=== PATIENT | female | born 2000 | race Caucasian/White ===

== ENCOUNTER 2020-03-09 20:49 | Emergency (ER) | payer OTHER, SELFPAY ==
--- NOTE | 2020-03-09 20:52 | ED.DENTAL ---
HPI - Dental/Oral General Chief complaint: Dental/Oral Stated complaint: tooth problems Time Seen by Provider: 03/09/20 20:52 Source: patient and RN notes reviewed Mode of arrival: ambulatory Limitations: no limitations History of Present Illness HPI Narrative: patient states that she had a filling fall out on left lower tooth. She denies any fever chills. MD Complaint: tooth pain Teeth map: 1. Dental pain Onset (ago): day(s) (3) Duration: intermittent Severity: moderate Relieving factors: other ( Tylenol) Exacerbating factors: chewing Context: history of dental caries Treatment prior to arrival: none Related Data Allergies Allergy/AdvReac Type Severity Reaction Status Date / Time No Known Allergies Allergy Unverified 05/27/18 18:57 Review of Systems Review of Systems: Narrative: Patient appears obviously . When asked she denied it and said she had a period 2 weeks ago. Constitutional: Constitutional: Reports no additional constitutional complaints, Denies chills and Denies fever(s) Eyes: Eyes: Reports no additional eye complaints ENT: Reports system reviewed and no additional complaints, except as documented Cardiovascular: Cardiovascular: Reports no additional cardiovascular complaints Respiratory: Respiratory: Reports no additional respiratory complaints Gastrointestinal: Gastrointestinal: Reports no additional gastrointestinal complaints Musculoskeletal: Comments: patient complains of left medial elbow pain. She said she hit it on a pot at work. Integumentary/Breasts: Skin/Breast: Reports system reviewed and no additional complaints, except as docu Neurologic: Reports system reviewed and no additional complaints, except as documented Psychiatric: Psychiatric: Reports no additional psychiatric complaints PMFSH Past Medical History Medical History (Updated 03/09/20 @ 21:29 by Bradley Valladares MD) Anxiety Social History Social History (Updated 03/09/20 @ 21:30 by Bradley Valladares MD) Smoking packs per day: 1 Smoking cigarettes per day: 20.0 Smoking status: Current every day smoker Tobacco type: cigarettes Alcohol intake: current Alcohol use details: Occasional Substance use: never Exam Const: General: healthy appearing, no acute distress and alert Nutritional Appearance: well nourished Orientation/consciousness: patient oriented x3 Other: Female nurse in room during examination. HENMT: Head: normal to inspection Ears: external ears normal and TM abnormal General nose exam: Normal external nose present Mouth: Yes lip normal Teeth and gingiva: abnormal tooth and associated gingiva lower left first molar tender and with associated gingival edema Teeth image: 1. Tenderness with mild edema Eyes: Conjunctivae: conjunctivae normal Pupils: Equal, round and reactive pupils present EOM: EOMs intact bilaterally Neck: Neck: normal visual inspection and no lymphadenopathy Resp: Effort & Inspection: normal respiratory effort Auscultation: clear to auscultation bilaterally Cardio: Rate: regular rate Rhythm: regular rhythm GI: Inspection: other Auscultation: normal bowel sounds Other: During my abdominal exam I palpated the uterus to be near the xiphoid process. When measured the uterus is 34 cm from symphysis pubis to fundus. heart tones at 140. Back/Spine/Pelvis: Cervical Spine: cervical ROM normal Thoracic/Lumbar Spine: thoraco-lumbar ROM normal Skin: General skin exam: normal color Rashes: no rashes Neuro: General: patient oriented x3, moves all extremities and no focal motor deficits Speech: normal speech Gait exam (Neuro): Normal gait present Extrem: General: normal to inspection and no pedal edema Left upper extremity: elbow/forearm tenderness of the medial epicondyle (Mild) but not with resisted supination and but not with resisted pronation and normal ROM Psych: Appearance: grossly normal and well kempt Mental Status: menta
[2020-03-09 21:00] VITALS: BP 115/62; PULSE 110; RESP 18; TEMP 36.6; O2SAT 98
--- NOTE | 2020-03-09 21:15 | PC.NURSE ---
pt continues to deny , edp at bedside assessing pt. heart tones heard left side near umbilicus. pt fundus measured per edp, pt approx 34 weeks . Pt flat, showing no emmotion. Pt asking for something for her anxiety.
--- NOTE | 2020-03-09 21:30 | PC.NURSE ---
Upon discharged pt requesting medication for anxiety. Pt educated that we are unable to safely prescribe any anti-anxiety medications due to her and that she needed to see an obgyn. list of obgyns given to patient. Pt educated on closest hospitals with ob departments. Pt verbalizes understanding and then again states when she was with her son the she was given peaches and berries , pt clarified this when asked to mean clonazepam and lorazepam. Pt continues to request medications, pt advised that she will have to get her prescriptions filled and follow up. Again educated patient that she needs to see an obgyn. Pt continues to have flat affect and poor eye contact.
--- NOTE | 2020-03-09 22:32 | PC.NURSE ---
Upon cleaning the room after pts discharge. Pt discharge packet and prescriptions where found in the trash can in the room.
== END 2020-03-09 21:40 | disposition home or self-care (01) ==
PROVIDERS: Emergency Provider Emergency Medicine; PCP Physician Assistant
DX: K08.89 Other specified disorders of teeth and supporting structures (principal)
CPT/HCPCS: 99283

== ENCOUNTER 2020-03-11 17:35 | Emergency (ER) | payer OTHER, SELFPAY ==
[2020-03-11 17:43] VITALS: BP 147/79; PULSE 113; RESP 17; TEMP 36.8; O2SAT 97
--- NOTE | 2020-03-11 17:47 | ED.DENTAL ---
HPI - Dental/Oral General Chief complaint: Dental/Oral Stated complaint: tooth pain Source: patient Mode of arrival: ambulatory Limitations: no limitations History of Present Illness HPI Narrative: This is a 19-year-old female with chronic dental pain is apparently 8 months presents with dental pain, the patient eloped in the middle of me talking to her and in allow for a full assessment. The patient patient was here this past Sunday evening and was given an antibiotic and another ER doctor prescribed narcotic but the narcotic would only be filled if she filled her antibiotic along with the the pain medicine. According to the nurses note from this past Tuesdays ER visit the patient threw away her amoxicillin script and according to nurse's note to the Scripts found in the trash bin. other nurse today I did a call back and the patient was not able to burr picker her narcotic strip secondary to she could only pick it up if she used the amoxicillin script and the pharmacy would not fill the prescription. Patient presents again with similar symptoms and I advised the patient that we can give her a local injection and treat her with other means other than narcotic, the patient declined, stating that the local an anesthetic would only give her temporary relief, and she flat refused taking any antibiotics that were offered. Explained that some we do not tend to write for narcotics for dental pain along with some with a 8 month and she stated in Why with the other doctor give me a narcotic then and . The patient then walked out of the room stating that she a Phyllis stare and even though I offered her a local injection, other means of pain control along with an antibiotic. Onset (ago): month(s) Duration: intermittent Severity scale (1-10): 10 Relieving factors: nothing Related Data Allergies Allergy/AdvReac Type Severity Reaction Status Date / Time No Known Allergies Allergy Unverified 05/27/18 18:57 Review of Systems Review of Systems: All systems reviewed & are unremarkable except as noted in HPI and below PMFSH Past Medical History Medical History Anxiety Social History Social History Smoking packs per day: 1 Smoking cigarettes per day: 20.0 Smoking status: Current every day smoker Tobacco type: cigarettes Alcohol intake: current Substance use: never Exam Const: General: no acute distress and alert Orientation/consciousness: patient oriented x3 Other: Unable to complete any assessment are exam because after the patient was informed that she would not receive a narcotic scripts she walked out before any evaluation was performed. HENMT: Head: normal to inspection Course Course Emergency Course: There was no complete assessment of patient secondary to the patient was told that she would not be getting a narcotic script, because she did not feel that antibiotics would do any good, she refused a local pain injection, and she for refused any other type of pain medication other than wanting a narcotic for pain relief. Critical Care Time Critical Care Time Critical Care Time: No Discharge Plan Discharge Clinical Impression: Toothache Patient Disposition: Elruthann Ater Seen by Prov Condition: Stable Prescriptions: No Action acetaminophen-codeine [Tylenol-Codeine #3] 300-30 mg tablet 1 tablet PO Q6H PRN (Reason: pain) Qty: 10 RF: 0 amoxicillin 500 mg capsule 500 mg PO Q8H Qty: 30 RF: 0 Follow-up/Referrals: Angelique,RACHELE Aguila [Primary Care Provider] - Stand Alone Forms: Work/School Release IP Time of Disposition: 17:54
== END 2020-03-11 17:55 ==
PROVIDERS: Emergency Provider Emergency Medicine; PCP Physician Assistant
DX: K08.89 Other specified disorders of teeth and supporting structures (principal)
CPT/HCPCS: 99281; 99282

== ENCOUNTER 2020-05-03 21:53 | Emergency (ER) | payer OTHER, SELFPAY ==
[2020-05-03 22:00] VITALS: BP 123/80; PULSE 78; RESP 16; TEMP 36.4; O2SAT 98
--- NOTE | 2020-05-03 23:07 | ED.DENTAL ---
HPI - Dental/Oral General Chief complaint: Dental/Oral Stated complaint: tooth pain Source: patient Mode of arrival: ambulatory Limitations: no limitations History of Present Illness HPI Narrative: 19 y.o. c/o inability to eat because of left lower molar pain so severe she can't chew, this is associated with swelling and left anterior neck discomfort. It started 3 days ago. The pain makes her blood pressure go up and brings on anxiety. She has a dental appt. on 05/23. She's asking for something for her pain and her anxiety. She denies fevers and chills. She was seen by Dr. Valladares on 03/09 with the same complaint and request. Dr. Guy [place], and found several prescriptions ( consisting of tramadol, clonazepam, [place], Tylenol No. 3, and lorazepam) over the last year from 12 different doctors at 4 different pharmacies. Patient has 5 different addresses. A script for Tylenol #3 and Amoxicillin were given with instructions to be filled together. The pt. threw the Amoxicillin script away, so wasn't able to fill the Tylenol #3. Dr. Lucia saw the pt on 03/11. She eloped when she was told she would not be given a script for narcotics; she refused the antiobiotics and eloped. Location: Tooth # (19) Teeth map: 1. Tooth with what appears to be an intact filling. Related Data Home Medications Medication Instructions Recorded Confirmed clonazepam 0.5 mg PO BID PRN 05/03/20 05/03/20 Allergies Allergy/AdvReac Type Severity Reaction Status Date / Time ibuprofen Allergy Intermediate Swelling Verified 05/03/20 22:16 Review of Systems Constitutional: Constitutional: Reports no additional constitutional complaints [facility] Past Medical History Medical History Anxiety Social History Social History Smoking packs per day: 1 Smoking cigarettes per day: 20.0 Smoking status: Current every day smoker Tobacco type: cigarettes Alcohol intake: current Substance use: never Exam Const: General: no acute distress Orientation/consciousness: patient oriented x3 Other: Anxious. Very concerned about her tooth not being touched because of pain. HENMT: Face and sinus: no sinus tenderness Mouth: Yes Normal oral and palatal mucosa present Teeth and gingiva: dentition normal and normal teeth and gingiva Other: No facial swelling, redness, or induration. She had tenderness elicited with firm compression over the mandible corresponding to tooth #19. Fully opens her mouth. Tooth #19 identified by pt. as the one which hurts. There is a filling which appears to be intact. There is no surrounding gingival swelling. I warned pt then llightly touched her tooth with my finger and she jumped. No oral lesions otherwise seen. Left EAC and TM with normal landmarks. Neck: Neck: no lymphadenopathy Course Course Emergency Course: I explained she may have an inflamed, irritated nerve in tooth #19, or possibly a minor infection not responding to Amoxicillin. I offered to provide an alternative antibiotic. As far as eating, I recommended she drink luke warm nutrition supplement shakes (e.g. Ensure). I also recommended f/u with PCP to address her anxiety. Shortly after I left the room the patient eloped. Vital Signs Vital signs: Vital Signs Temperature 36.4 C 05/03/20 22:00 Pulse Rate 78 05/03/20 22:00 Respiratory Rate 16 05/03/20 22:00 Blood Pressure 123/80 05/03/20 22:00 Pulse Oximetry 98 05/03/20 22:00 Temperature 36.4 C 05/03/20 22:00 Pulse Rate 78 05/03/20 22:00 Respiratory Rate 16 05/03/20 22:00 Blood Pressure 123/80 05/03/20 22:00 Pulse Oximetry 98 05/03/20 22:00 MDM - Dental/Oral MDM Narrative Medical decision making narrative: The patient's behavior may be a current untreated substance use disorder,difficulty getting and keeping appointment with PCP dentist, frustration w
== END 2020-05-03 23:00 | disposition left against medical advice (07) ==
LOC: CHSED 21:54
PROVIDERS: Emergency Provider Family Medicine; PCP Physician Assistant
DX: K08.89 Other specified disorders of teeth and supporting structures (principal); F17.200 Nicotine dependence, unspecified, uncomplicated
CPT/HCPCS: 99281; 99282

== ENCOUNTER 2020-06-21 22:08 | Emergency (ER) | payer OTHER, SELFPAY ==
[2020-06-21 22:16] VITALS: BP 122/74; PULSE 88; RESP 20; TEMP 37; O2SAT 98
--- NOTE | 2020-06-21 22:25 | ED.FEMALEGU ---
HPI - Female Genitourinary General Chief complaint: PER DIEM NURSE Stated complaint: vaginal bleeding Time Seen by Provider: 06/21/20 22:26 Source: patient and RN notes reviewed Mode of arrival: ambulatory Limitations: no limitations History of Present Illness HPI Narrative: Patient states that she gave on May 02. She then thinks that she had a normal menstrual cycle on May 10 just 8 days later. She said she had intercourse 2 weeks after her delivery. She had a positive test at home but then today had significant bleeding and clots. No products of conception that she could see. Some moderate cramping. She currently has no abdominal pain. MD elicited complaint: vaginal bleeding Onset (ago): hour(s) (6) Location of symptoms: suprapubic Severity: severe Female Urogenital Radiation: Non-Radiating Quality of pain: cramping Consistency: improved Vaginal discharge: none Vaginal bleeding: heavy, bright red and clots Exacerbating factors: none Relieving factors: none Associated symptoms: denies other symptoms Treatment prior to arrival: none Sexual activity: Yes Possible : at home test positive Related Data : 4 Para: 3 Home Medications Medication Instructions Recorded Confirmed gabapentin 300 mg PO TID 06/21/20 06/21/20 Allergies Allergy/AdvReac Type Severity Reaction Status Date / Time ibuprofen Allergy Intermediate Swelling Verified 06/21/20 22:23 Review of Systems Review of Systems: All systems reviewed & are unremarkable except as noted in HPI and below PMFSH Past Medical History Medical History Anxiety Social History Social History Smoking packs per day: 1 Smoking cigarettes per day: 20.0 Smoking status: Current every day smoker Tobacco type: cigarettes Alcohol intake: current Substance use: never Gender identity (if verbalized by the patient): Female Exam Const: General: healthy appearing and no acute distress Nutritional Appearance: well nourished and thin Orientation/consciousness: patient oriented x3 Other: Female nurse in room during examination. HENMT: Head: normal to inspection Ears: external ears normal Face and sinus: normal facial exam Eyes: Conjunctivae: conjunctivae normal Pupils: Equal, round and reactive pupils present EOM: EOMs intact bilaterally Neck: Neck: normal visual inspection Resp: Effort & Inspection: normal respiratory effort Auscultation: clear to auscultation bilaterally Cardio: Rate: regular rate Rhythm: regular rhythm GI: GI Palp: Yes Soft to palpation, No Tenderness to palpation present (GI), No Guarding due to palpation present (GI) and No Rebound tenderness present Auscultation: normal bowel sounds : General: Yes no CVA tenderness Back/Spine/Pelvis: Cervical Spine: cervical ROM normal Thoracic/Lumbar Spine: thoraco-lumbar ROM normal Skin: General skin exam: normal color Rashes: no rashes Neuro: General: patient oriented x3, moves all extremities, no meningeal signs and no focal motor deficits Speech: normal speech Gait exam (Neuro): Normal gait present Extrem: General: normal to inspection and no clubbing, cyanosis or edema Psych: Mental Status: mental status grossly normal Affect: normal affect Attitude: cooperative Thought content: Yes Normal thought content present Judgement: Good judgement present (Psych) Course Course Emergency Course: I canceled the quantitative beta HCG due to the qualitative being negative. I believe she is having her 1st normal menstrual cycle after her delivery. Vital Signs Vital signs: Vital Signs Temperature 37.0 C 06/21/20 22:16 Pulse Rate 88 06/21/20 22:16 Respiratory Rate 20 06/21/20 22:16 Blood Pressure 122/74 06/21/20 22:16 Pulse Oximetry 98 06/21/20 22:16 Temperature 37.0 C 06/21/20 22:16 Pulse Rate 80 06/21/20 23:32 Respiratory
[2020-06-21 23:05] LABS: Pregnancy On Board Control Positive; Urine Pregnancy Test Negative
--- NOTE | 2020-06-21 23:06 | PC.NURSE ---
[id number] RN present in room for doctor to examine pt
[2020-06-21 23:32] VITALS: PULSE 80; RESP 20; O2SAT 100
== END 2020-06-21 23:33 | disposition home or self-care (01) ==
PROVIDERS: Emergency Provider Emergency Medicine; PCP Physician Assistant
DX: N92.0 Excessive and frequent menstruation with regular cycle (principal)
CPT/HCPCS: 36415; 81025; 84702; 99282; 99283

== ENCOUNTER 2020-08-15 01:05 | Emergency (ER) | payer OTHER, SELFPAY ==
[2020-08-15 01:40] VITALS: BP 136/72; PULSE 91; RESP 20; TEMP 37.2; O2SAT 97
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
[2020-08-15] MEDS: ACETAMINOPHEN 500 MG TABLET 1000 MG PO (01:59)
[2020-08-15] MEDS: ALPRAZolam (*CRX) 0.5 MG TABLET PO (01:59)
[2020-08-15 02:00] VITALS: BP 123/78; PULSE 97; RESP 20; TEMP 37.1; O2SAT 99
--- NOTE | 2020-08-15 16:41 | PC.NURSE ---
Pt called to request medication be sent to a different pharmacy. Pt instructed that we are unable to re-send the prescription and to call her pmd in the am to discuss having prescription re-written if needed. Pt states she is unable to get this particular prescription filled at [facility] and can only have it filled at [facility] due to it being a controlled substance.
== END 2020-08-15 02:12 | disposition home or self-care (01) ==
PROVIDERS: Emergency Provider Emergency Medicine; PCP Physician Assistant
DX: F41.9 Anxiety disorder, unspecified (principal); F41.0 Panic disorder [episodic paroxysmal anxiety]; S00.03XA Contusion of scalp, initial encounter; Y04.0XXA Assault by unarmed brawl or fight, initial encounter
CPT/HCPCS: 99283; A9270

== ENCOUNTER 2020-09-20 16:30 | Emergency (ER) | payer OTHER, SELFPAY ==
--- NOTE | ~2020-09-20 | CT_ITS ---
EXAMINATION: CT abdomen pelvis w con EXAM DATE: 09/20/2020 19:17 INDICATION: Abdominal pain, right lower quadrant pain. Symptoms since this morning. TECHNIQUE: Spiral CT of the abdomen and pelvis was performed following intravenous injection of 100 m L Omnipaque 350. Axial, coronal and sagittal images were reviewed. The dose-length product (DLP) fo r this examination was 401.37 mGy-cm. The exposure was tailored according to patient size (auto mA e xposure control), and iterative reconstruction (ASIR) was used as additional dose reduction technique . There is no prior study for comparison. FINDINGS: There is subsegmental region of right lower lobe posterior sulcus acute airspace disease, c ould be infection or infarction. Some decreased attenuation in the basilar segmental vessels, could b e from motion but pulmonary emboli not excludable. The liver, spleen, adrenal glands and pancreas are unremarkable. Gallbladder is unremarkable. No bi liary obstruction. Portal and splenic veins are patent. Kidneys enhance symmetrically. There is no hydronephrosis. Low-density endometrium, could be fluid within the endometrium appears rather focal measuring about 4.0 x 3.0 cm. The bladder is unremarkable. There is no retroperitoneal lymphadenopath y. The appendix is normal. The stomach and small bowel are unremarkable. There is expected amount of c olonic stool. No free intraperitoneal gas. The heart is normal in size. There are no pericardial or pleural effusions. There are no osteoblastic or osteolytic lesions identified. IMPRESSION: 1. Subsegmental right basilar airspace disease, could be infection or infarction. Can't exclude basi lar pulmonary embolism. 2. Abnormally thickened endometrium/endometrial fluid. Follow-up pelvic sonogram recommended. Reviewed, dictated and finalized at location A. [employer] IMPRESSION: 1. Subsegmental right basilar airspace disease, could be infection or infarcti on. Can't exclude basilar pulmonary embolism. 2. Abnormally thickened endometrium/endometrial fluid. Follow-up pelvic sonogr am recommended.
[2020-09-20 16:35] VITALS: BP 144/75; PULSE 96; RESP 16; TEMP 36.6; O2SAT 100
--- NOTE | 2020-09-20 16:36 | ED.ABDPAIN ---
HPI - Abdominal Pain General Chief Complaint: Abdominal Pain Stated Complaint: AMB Time Seen by Provider: 09/20/20 16:37 Source: patient, EMS and RN notes reviewed Mode of arrival: EMS Limitations: no limitations History of Present Illness MD elicited complaint: abdominal pain Pertinent past history: none Onset (ago): hour(s) (12) Pain Consistency: intermittent Location: RLQ Severity: moderate Quality: stabbing Radiation: RUQ Migration to: no migration Exacerbating factors: nothing Relieving factors: nothing Associated symptoms: nausea Related Data Home Medications Medication Instructions Recorded Confirmed gabapentin 300 mg PO TID 06/21/20 09/20/20 Allergies Allergy/AdvReac Type Severity Reaction Status Date / Time ibuprofen Allergy Intermediate Swelling Verified 06/21/20 22:23 Review of Systems Constitutional: Constitutional: Denies chills and Denies fever(s) Eyes: Eyes: Reports no additional eye complaints ENT: Reports system reviewed and no additional complaints, except as documented Cardiovascular: Cardiovascular: Reports no additional cardiovascular complaints Respiratory: Respiratory: Reports no additional respiratory complaints Gastrointestinal: Gastrointestinal: Reports as per HPI Musculoskeletal: Musculoskeletal: Reports no additional musculoskeletal complaints Integumentary/Breasts: Skin/Breast: Reports system reviewed and no additional complaints, except as docu Neurologic: Reports system reviewed and no additional complaints, except as documented Psychiatric: Psychiatric: Reports no additional psychiatric complaints Endocrine: Endocrine: Reports no additional endocrine complaints Hematologic/Lymphatic: Hematologic/Lymphatic: Reports no additional hematologic/lymphatic complaints [facility] Past Medical History Medical History (Updated 09/20/20 @ 20:15 by Bradley Valladares MD) Anxiety Social History Social History Smoking packs per day: 1 Smoking cigarettes per day: 20.0 Smoking status: Current every day smoker Tobacco type: cigarettes Alcohol intake: current Substance use: never Gender identity (if verbalized by the patient): Female Course Course Emergency Course: Patient was found to be after the CT scan was done. CT scan showed evidence of infection versus infarction in her right lower lobe. She has no cough but has pain with deep inspiration. She was advised to get a V/Q scan for possible pulmonary embolism. She states that she needs to leave because she has to walk home. She advises that she is willing to leave against medical advice. She understands the risks associated with leaving. Which include , severe outcome of pulmonary embolism. Vital Signs Vital signs: Vital Signs Temperature 36.6 C 09/20/20 16:35 Pulse Rate 96 09/20/20 16:35 Respiratory Rate 16 09/20/20 16:35 Blood Pressure 144/75 H 09/20/20 16:35 Pulse Oximetry 100 09/20/20 16:35 Temperature 36.6 C 09/20/20 16:35 Pulse Rate 78 09/20/20 20:20 Respiratory Rate 16 09/20/20 20:20 Blood Pressure 144/75 H 09/20/20 16:35 Pulse Oximetry 100 09/20/20 16:35 MDM - Abdominal Pain Lab Data Result diagrams: 09/20/20 17:52 09/20/20 17:52 Labs: Lab Results 09/20/20 09/20/20 09/20/20 Range/Units 17:52 17:52 17:52 WBC 11.4 H (4.8-10.8) K/mm3 RBC 4.32 (4.20-5.40) M/mm3 Hgb 11.6 L (12.0-15.0) g/dL Hct 36.2 (35.0-49.0) % MCV 83.8 (78.0-102.0) fL MCH 26.9 L (27.0-31.0) pg MCHC 32.0 (32.0-36.0) g/dL RDW 16.5 H (11.6-14.4) % Plt Count 186 (150-420) K/mm3 MPV 11.8 (9.2-11.8) fl Immature Gran % (Auto) 0.4 H (0.0-0.0) % Neut % (Auto) 77.2 H (50.0-70.0) % Lymph % (Auto) 13.3 L (18.0-42.0) % [place] % (Auto) 7.6 (2.0-11.0) % Eos % (Auto) 1.1 (1.0-6.0) % Baso % (Auto) 0.4 (0.0-1.0) % Lymph # (Aut
[2020-09-20 17:56] LABS: Basophils Absolute Auto 0.04 K/mm3 (0.00-0.10); Basophils Percent Auto 0.4 % (0.0-1.0); Eosinophils Absolute Auto 0.12 K/mm3 (0.02-0.50); Eosinophils Percent Auto 1.1 % (1.0-6.0); Hematocrit 36.2 % (35.0-49.0); Hemoglobin 11.6 g/dL (12.0-15.0); Immature Granulocyte Absolute 0.04 K/mm3 (0.00-0.00); Immature Granulocyte Percent A 0.4 % (0.0-0.0); Lymphocytes Absolute Auto 1.51 K/mm3 (1.10-4.50); Lymphocytes Percent Auto 13.3 % (18.0-42.0); Mean Corpuscular Hemoglobin 26.9 pg (27.0-31.0); Mean Corpuscular Volume 83.8 fL (78.0-102.0); Mean Platelet Volume 11.8 fl (9.2-11.8); Monocytes Absolute Auto 0.87 K/mm3 (0.10-0.90); Monocytes Percent Auto 7.6 % (2.0-11.0); Neutrophils Absolute Auto 8.8 K/mm3 (1.7-7.2); Neutrophils Percent Auto 77.2 % (50.0-70.0); Platelet Count Result 186 K/mm3 (150-420); Red Blood Count 4.32 M/mm3 (4.20-5.40); Red Cell Distribution Width 16.5 % (11.6-14.4); White Blood Count 11.4 K/mm3 (4.8-10.8)
[2020-09-20 18:15] LABS: Alanine Aminotransferase 11 U/L (14-59); Albumin Level 3.6 g/dL (3.4-5.0); Alkaline Phosphatase 66 U/L (46-116); Anion Gap 9 mmol/L (8-16); Aspartate Amino Transferase < 10 U/L (15-37); Bilirubin,Total 0.2 mg/dL (0.00-1.00); Blood Urea Nitrogen 5 mg/dL (7-18); Calcium 8.9 mg/dL (8.5-10.1); Carbon Dioxide 26 mmol/L (21-32); Chloride 106 mmol/L (98-108); Estimated CRCL calculation 99 ml/min; Estimated Glomerular Filt Rate > 60; Glucose 83 mg/dL (70-99); Lipase 113 U/L (73-393); Osmolality Calculated 288 mOsm/kg (285-295); Potassium 3.9 mmol/L (3.5-5.1); Sodium 141 mmol/L (136-145); Total Protein 6.9 g/dL (6.4-8.2)
[2020-09-20 18:21] LABS: CRP 2.2 mg/dL (0.0-0.9)
[2020-09-20 18:23] LABS: Add Urine Microscopic? YES; Appearance Urine Clear (Clear); Bilirubin Urine Negative (Negative); Blood Urine Negative (Negative); Color Urine Yellow (Yellow); Glucose Urine UA Negative (Negative); Ketones Urine Negative (Negative); Leukocyte Esterase Ur Trace LEU/UL (Negative); Nitrate Urine Negative (Negative); Protein Urine Negative (Negative); Specific Grav Ur 1.015 (1.010-1.020); Urobilinogen Urine 0.2 mg/dL (0.2-1.0)
[2020-09-20 18:26] LABS: Bacteria Urine Trace /hpf; RBC Urine None seen /hpf (0-2); Squamous Epithelial Cell Urine Rare /hpf (Few); WBC Urine None seen /hpf (0-3)
[2020-09-20 19:02] LABS: Pregnancy On Board Control Positive; Urine Pregnancy Test Positive
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
[2020-09-20 19:46] LABS: SPREG INTERNAL CONTROL Positive; Serum Qual hCG POS
[2020-09-20 20:12] LABS: D Dimer 1.01 mg/L (0.19-0.50)
[2020-09-20 20:20] VITALS: PULSE 78; RESP 16
== END 2020-09-20 20:20 | disposition left against medical advice (07) ==
PROVIDERS: Emergency Provider Emergency Medicine; PCP Physician Assistant
DX: R10.31 Right lower quadrant pain (principal); Z3A.01 Less than 8 weeks gestation of pregnancy
CPT/HCPCS: 36415; 74177; 80053; 81001; 81025; 83690; 84703; 85025; 85380; 86140; 99282; 99284; Q9965; Q9967

== ENCOUNTER 2021-03-15 02:31 | Emergency (ER) | payer OTHER, SELFPAY ==
[2021-03-15 02:32] VITALS: BP 139/66; PULSE 100; RESP 20; TEMP 36.8; O2SAT 100
[2021-03-15] MEDS: diphenhydrAMINE HCl INJ 50 MG/ML VIAL 25 MG IM (02:45)
--- NOTE | 2021-03-15 02:45 | ED.SKABFB ---
HPI - Skin/Abscess/Foreign Bdy General Stated complaint: Rash Source: patient Mode of arrival: ambulatory Limitations: no limitations History of Present Illness HPI narrative: this is a 20-year-old female that is some 35 weeks presents with a rash diffuse mainly on her abdomen and arms, with no fever chills unaware of any different contact materials that she may of encountered. There is no fever chills no nausea vomiting no abdominal pain no audible wheezing no shortness of breath. complaint: rash Onset (ago): day(s) Location: generalized Severity: mild Quality: pruritic Pain Consistency: intermittent Relieving factors: none Exacerbating factors: none Related Data Home Medications Medication Instructions Recorded Confirmed gabapentin 300 mg PO TID 06/21/20 09/20/20 Allergies Allergy/AdvReac Type Severity Reaction Status Date / Time ibuprofen Allergy Intermediate Swelling Verified 06/21/20 22:23 Review of Systems Review of Systems: All systems reviewed & are unremarkable except as noted in HPI and below PMFSH Past Medical History Medical History (Updated 03/15/21 @ 02:49 by Nick Lucia MD) Anxiety Social History Social History Smoking packs per day: 1 Smoking cigarettes per day: 20.0 Smoking status: Current every day smoker Tobacco type: cigarettes Alcohol intake: current Substance use: never Gender identity (if verbalized by the patient): Female Exam Const: General: no acute distress and alert Orientation/consciousness: patient oriented x3 HENMT: Head: normal to inspection Eyes: Conjunctivae: conjunctivae normal Pupils: Equal, round and reactive pupils present EOM: EOMs intact bilaterally Neck: Neck: normal visual inspection, no lymphadenopathy and no meningeal signs Chest: Chest palpation & inspection: normal inspection of the chest Resp: Effort & Inspection: normal respiratory effort Auscultation: clear to auscultation bilaterally Cardio: Rate: regular rate Rhythm: regular rhythm GI: GI Palp: Yes Soft to palpation Percussion: Yes normal to percussion : General: Yes no CVA tenderness Urinary Catheter: Urinary Catheter: patent and draining Back/Spine/Pelvis: Back: no CVA tenderness Skin: General skin exam: normal color Other: Rash some diffuse mainly located abdomen arms and back Neuro: General: patient oriented x3 and moves all extremities Extrem: General: normal to inspection and no pedal edema Psych: Mental Status: mental status grossly normal Course Course Emergency Course: patient received 25 mg of Benadryl Critical Care Time Critical Care Time Critical Care Time: No Discharge Plan Discharge Clinical Impression: Contact dermatitis Qualifiers: Contact dermatitis type: unspecified Contact dermatitis trigger: unspecified trigger Qualified Code(s): L25.9 - Unspecified contact dermatitis, unspecified cause Patient Disposition: Home, Self-Care Condition: Stable Instructions: Antibiotic Form Additional Instructions: advised to take Benadryl [id number] as needed for itching and rash in follow-up with her provider within a week further evaluation and treatment. Prescriptions: No Action gabapentin 300 mg capsule 300 mg PO TID RF: 0 Follow-up/Referrals: Angelique,RACHELE Aguila [Primary Care Provider] - Time of Disposition: 02:49
[2021-03-15 03:03] VITALS: BP 136/66; PULSE 100; RESP 20; TEMP 36.8; O2SAT 100
[2021-03-15 04:00] LABS: HIV 1 P24 AG Negative (Negative); HIV 1/2 AB Negative (Negative)
== END 2021-03-15 03:05 | disposition home or self-care (01) ==
PROVIDERS: Emergency Provider Emergency Medicine; PCP Physician Assistant
DX: L25.9 Unspecified contact dermatitis, unspecified cause (principal)
CPT/HCPCS: 36415; 86703; 96372; 99283; J1200

== ENCOUNTER 2021-06-05 16:04 | Emergency (ER) | payer OTHER, SELFPAY ==
[2021-06-05 16:10] VITALS: BP 140/87; PULSE 89; RESP 20; TEMP 37.1; O2SAT 98
--- NOTE | 2021-06-05 16:21 | ECG_ITS ---
Measurements Intervals [place] Rate: 82 P: 37 OK: 136 QRS: 27 QRSD: 82 T: 30 QT: 388 QTc: 455 Interpretive Statements SINUS RHYTHM BASELINE ARTIFACT- I, III, AVR, AVL, V4 NORMAL ECG Electronically Signed On 06-06-2021 6:06:37 CDT by Uli Epstein D.O.
--- NOTE | 2021-06-05 16:23 | ED.CHESTPAIN ---
HPI - Chest Pain General Chief Complaint: Chest Pain Stated Complaint: Trouble breathing, Chest heavy Time Seen by Provider: 06/05/21 16:20 Source: patient Mode of arrival: ambulatory Limitations: no limitations History of Present Illness HPI narrative: 20-year-old woman comes in today complaining of chest tightness that has been present for the last 2 days. She states that makes her feel short of breath. She denies any cough, cold symptoms, fever, sore throat, nausea, vomiting or sick exposures. she has had no calf pain or swelling. She delivered her 4th child on April 19. She is a smoker. No history of asthma or lung disease. She states her symptoms are worse when she is in a crowd of people. MD complaint: chest heaviness Onset (ago): day(s) (2) Timing of current episode: constant Onset: during rest Pain location: substernal Pain radiation: none Severity: moderate Quality: tightness and heaviness Relieving factors: nothing Context: other ( give 6 weeks ago) Associated symptoms: dyspnea Risk Factors Coronary artery disease risk factors: smoking history Thoracic aortic dissection risk factors: none Pulmonary embolism risk factors: post- state Related Data Home Medications Medication Instructions Recorded Confirmed gabapentin 300 mg PO DAILY 06/05/21 06/05/21 hydroxyzine HCl 25 mg PO DAILY PRN 06/05/21 06/05/21 sertraline 50 mg PO DAILY 06/05/21 06/05/21 Allergies Allergy/AdvReac Type Severity Reaction Status Date / Time ibuprofen Allergy Intermediate Swelling Verified 06/21/20 22:23 Review of Systems Review of Systems: All systems reviewed & are unremarkable except as noted in HPI and below Constitutional: Constitutional: Denies chills and Denies fever(s) Eyes: Eyes: Denies change in vision and Denies photophobia ENT: Denies dysphagia, Denies nasal congestion and Denies sore throat Cardiovascular: Cardiovascular: Reports chest pain and Denies radiating jaw, neck or arm pain Respiratory: Respiratory: Denies cough and Reports dyspnea Gastrointestinal: Gastrointestinal: Denies abdominal pain, Denies nausea and Denies vomiting Genitourinary: Genitourinary: Denies nocturia and Denies dysuria Musculoskeletal: Musculoskeletal: Denies back pain, Denies arthralgias and Denies joint swelling Integumentary/Breasts: Skin/Breast: Denies pruritus, Denies erythema and Denies rash Neurologic: Denies vertigo, Denies dizziness, Denies syncope and Denies weakness Hematologic/Lymphatic: Hematologic/Lymphatic: Denies easy bleeding and Denies easy bruising Allergic/Immunologic: Allergic/Immunologic: Denies lip swelling and Denies throat swelling FOR[facility]LY [facility] Past Medical History Medical History (Updated 06/05/21 @ 17:19 by Chepe Beaulieu MD) Anxiety Social History Social History Smoking packs per day: 1 Smoking cigarettes per day: 20.0 Smoking status: Current every day smoker Tobacco type: cigarettes Alcohol intake: current Alcohol use details: Occasional Substance use: never Gender identity (if verbalized by the patient): Female Exam Const: General: healthy appearing and alert Orientation/consciousness: patient oriented x3 Limitations: no limitations Other: Mildly anxious HENMT: Head: normal to inspection Ears: external ears normal, TM's normal bilaterally and EAC's normal General nose exam: Normal nares present Face and sinus: normal facial exam Mouth: Yes moist mucous membranes Throat: posterior oropharynx normal Eyes: Conjunctivae: conjunctivae normal Pupils: Equal, round and reactive pupils present EOM: EOMs intact bilaterally Resp: Effort & Inspection: normal respiratory effort and not labored Auscultation: clear to auscultation bilaterally, no rales, no rhonchi and no wheezes Cardio: Rate: regular rate Rhythm: regular rhythm Heart sounds: no murmurs GI: GI Palp: Yes Soft to palpation and No Tendern
[2021-06-05 16:44] VITALS: PULSE 89
[2021-06-05 16:48] LABS: Basophils Absolute Auto 0.09 K/mm3 (0.00-0.10); Basophils Percent Auto 0.9 % (0.0-1.0); Eosinophils Absolute Auto 0.65 K/mm3 (0.02-0.50); Eosinophils Percent Auto 6.3 % (1.0-6.0); Hematocrit 38.1 % (35.0-49.0); Hemoglobin 12.2 g/dL (12.0-15.0); Immature Granulocyte Absolute 0.03 K/mm3 (0.00-0.00); Immature Granulocyte Percent A 0.3 % (0.0-0.0); Lymphocytes Absolute Auto 2.74 K/mm3 (1.10-4.50); Lymphocytes Percent Auto 26.5 % (18.0-42.0); Mean Corpuscular Hemoglobin 25.5 pg (27.0-31.0); Mean Corpuscular Volume 79.7 fL (78.0-102.0); Mean Platelet Volume 11.5 fl (9.2-11.8); Monocytes Absolute Auto 0.53 K/mm3 (0.10-0.90); Monocytes Percent Auto 5.1 % (2.0-11.0); Neutrophils Absolute Auto 6.3 K/mm3 (1.7-7.2); Neutrophils Percent Auto 60.9 % (50.0-70.0); Platelet Count Result 221 K/mm3 (150-420); Red Blood Count 4.78 M/mm3 (4.20-5.40); Red Cell Distribution Width 21.1 % (11.6-14.4); White Blood Count 10.3 K/mm3 (4.8-10.8)
[2021-06-05 16:54] LABS: Pregnancy On Board Control Positive; Urine Pregnancy Test Negative
[2021-06-05 17:04] VITALS: BP 120/82; PULSE 75; RESP 20; O2SAT 99
[2021-06-05 17:05] LABS: Partial Thromboplastin Time 25.4 SEC (23.90-30.70); Prothrombin Time 10.7 Seconds (9.50-12.10)
[2021-06-05 17:07] LABS: Alanine Aminotransferase 27 U/L (14-59); Albumin Level 3.4 g/dL (3.4-5.0); Alkaline Phosphatase 80 U/L (46-116); Anion Gap 12 mmol/L (8-16); Aspartate Amino Transferase 19 U/L (15-37); Bilirubin,Total 0.2 mg/dL (0.00-1.00); Blood Urea Nitrogen 9 mg/dL (7-18); Calcium 8.1 mg/dL (8.5-10.1); Carbon Dioxide 23 mmol/L (21-32); Chloride 108 mmol/L (98-108); Estimated CRCL calculation 81 ml/min; Estimated Glomerular Filt Rate > 60; Glucose 81 mg/dL (70-99); Osmolality Calculated 293 mOsm/kg (285-295); Sodium 143 mmol/L (136-145); Total Protein 6.5 g/dL (6.4-8.2)
[2021-06-05 17:08] LABS: Troponin I < 4.0 ng/L (0.00-60.4)
[2021-06-05 17:11] LABS: SARS-CoV-2 Ag Negative (Negative)
[2021-06-05 17:19] VITALS: BP 120/82; PULSE 71; RESP 20; TEMP 37.1; O2SAT 98
== END 2021-06-05 17:30 | disposition home or self-care (01) ==
PROVIDERS: Emergency Provider Emergency Medicine; PCP Physician Assistant
DX: R07.89 Other chest pain (principal); Z20.822 Contact with and (suspected) exposure to COVID-19
CPT/HCPCS: 36415; 80053; 81025; 84484; 85025; 85380; 85610; 85730; 87426; 93005; 99283; 99284; C9803

== ENCOUNTER 2021-08-12 17:35 | Emergency (ER) | payer OTHER, SELFPAY ==
[2021-08-12 17:40] VITALS: BP 112/80; PULSE 88; RESP 18; TEMP 37; O2SAT 98
[2021-08-12] MEDS: guaiFENesin 12 HR 600 MG TABCR PO (18:03)
[2021-08-12 18:06] LABS: Influenza Control Valid (Valid)
[2021-08-12 18:16] LABS: SARS-CoV-2 Ag Negative (Negative)
[2021-08-12 18:20] VITALS: BP 112/70; PULSE 70; RESP 16; TEMP 36.6; O2SAT 98
--- NOTE | 2021-08-12 18:53 | ED.URI ---
HPI - URI/Sore Throat General Chief Complaint: Upper Respiratory Infection Stated Complaint: ambulance Time Seen by Provider: 08/12/21 17:37 Source: patient, EMS and RN notes reviewed Mode of arrival: EMS Limitations: no limitations History of Present Illness MD elicited complaint: cough, sore throat and nasal congestion Onset (ago): day(s) (1) Consistency: constant Severity: mild Pain scale (0-10): 2 Description of mucous: other (none) Able to tolerate fluids by mouth: Yes Exacerbating factors: swallowing Relieving factors: other (tylenol) Context: sick contacts Associated symptoms: headache, nasal congestion and sore throat Treatments prior to arrival: acetaminophen Related Data Home Medications Medication Instructions Recorded Confirmed gabapentin 300 mg PO DAILY 06/05/21 08/12/21 hydroxyzine HCl 25 mg PO DAILY PRN 06/05/21 08/12/21 sertraline 50 mg PO DAILY 06/05/21 08/12/21 Allergies Allergy/AdvReac Type Severity Reaction Status Date / Time ibuprofen Allergy Intermediate Swelling Verified 06/21/20 22:23 Review of Systems Review of Systems: All systems reviewed & are unremarkable except as noted in HPI and below ENT: Reports sore throat Respiratory: Respiratory: Reports cough PMFSH Past Medical History Medical History Anxiety Pharyngitis Upper respiratory infection Social History Social History Smoking packs per day: 1 Smoking cigarettes per day: 20.0 Smoking status: Current every day smoker Tobacco type: cigarettes Alcohol intake: current Alcohol use details: Occasional Substance use: never Gender identity (if verbalized by the patient): Female Exam Const: General: no acute distress and alert Nutritional Appearance: well nourished Orientation/consciousness: patient oriented x3 HENMT: Head: normal to inspection Ears: external ears normal and TM's normal bilaterally General nose exam: Normal external nose present and Normal nares present Mouth: Yes lip normal and Yes moist mucous membranes Teeth and gingiva: dentition normal Throat: uvula midline (minimal pharyngeal redness with no acute swelling or exudates.) Eyes: Conjunctivae: conjunctivae normal Pupils: Equal, round and reactive pupils present EOM: EOMs intact bilaterally Neck: Neck: normal visual inspection and no lymphadenopathy Chest: Chest palpation & inspection: normal inspection of the chest Resp: Effort & Inspection: normal respiratory effort Auscultation: clear to auscultation bilaterally Cardio: Rate: regular rate Rhythm: regular rhythm GI: GI Palp: Yes Soft to palpation and No Tenderness to palpation present (GI) Percussion: Yes normal to percussion Auscultation: normal bowel sounds : General: Yes bladder normal to palpation and Yes no CVA tenderness Back/Spine/Pelvis: Back: no CVA tenderness Skin: General skin exam: normal color Rashes: no rashes Neuro: General: patient oriented x3, moves all extremities, no meningeal signs, no focal motor deficits and CN's II-XI intact bilaterally Extrem: General: normal to inspection and no pedal edema Psych: Mental Status: mental status grossly normal Affect: normal affect Thought content: Yes Normal thought content present Course Course Emergency Course: Pt had less coughing in the ED. VSS. Reevaluation(s) Date: 08/12/21 Time: 18:26 Vital Signs Vital signs: Vital Signs Temperature 37.0 C 08/12/21 17:40 Pulse Rate 88 08/12/21 17:40 Respiratory Rate 18 08/12/21 17:40 Blood Pressure 112/80 08/12/21 17:40 Pulse Oximetry 98 08/12/21 17:40 Temperature 37.0 C 08/12/21 17:40 Pulse Rate 88 08/12/21 17:40 Respiratory Rate 18 08/12/21 17:40 Blood Pressure 112/80 08/12/21 17:40 Pulse Oximetry 98 08/12/21 17:40 MDM - URI/Sore Throat Differential Diagnosis Differential diagnosis: Likely upper res
[2021-08-12 18:59] VITALS: BP 111/70; PULSE 72; RESP 16; TEMP 37; O2SAT 97
== END 2021-08-12 19:02 | disposition home or self-care (01) ==
PROVIDERS: Emergency Provider Emergency Medicine; PCP Physician Assistant
DX: J02.9 Acute pharyngitis, unspecified (principal); J06.9 Acute upper respiratory infection, unspecified; Z20.822 Contact with and (suspected) exposure to COVID-19
CPT/HCPCS: 87081; 87426; 87804; 87880; 99283; A9270; C9803

== ENCOUNTER 2021-08-21 22:05 | Emergency (ER) | payer OTHER, SELFPAY ==
[2021-08-21 22:10] VITALS: BP 142/94; PULSE 98; RESP 20; TEMP 36.7; O2SAT 100
--- NOTE | 2021-08-21 22:20 | ED.URI ---
HPI - URI/Sore Throat General Chief Complaint: Upper Respiratory Infection Stated Complaint: doesn't feel good Time Seen by Provider: 08/21/21 22:21 Source: patient Mode of arrival: ambulatory Limitations: no limitations History of Present Illness HPI Narrative: 21-year-old woman comes in today complaining of 2 days of worsening cough, congestion and not feeling well. Patient states that she has no shortness of breath, vomiting or fever. She was seen here approximately 10 days ago and prescribed antibiotics which seemed to help her symptoms however her symptoms have come back. Her significant other is here with similar symptoms. MD elicited complaint: cough and rhinorrhea Pertinent past history: asthma ( As a child) Onset (ago): day(s) (2) Consistency: constant Severity: moderate Exacerbating factors: nothing Relieving factors: nothing Context: sick contacts Associated symptoms: rhinorrhea, nasal congestion and cough Treatments prior to arrival: none Related Data Home Medications Medication Instructions Recorded Confirmed gabapentin 300 mg PO DAILY 06/05/21 08/21/21 hydroxyzine HCl 25 mg PO DAILY PRN 06/05/21 08/21/21 sertraline 50 mg PO DAILY 06/05/21 08/21/21 Allergies Allergy/AdvReac Type Severity Reaction Status Date / Time ibuprofen Allergy Intermediate Swelling Verified 06/21/20 22:23 Review of Systems Review of Systems: All systems reviewed & are unremarkable except as noted in HPI and below Constitutional: Constitutional: Denies chills, Reports fatigue and Denies fever(s) ENT: Reports nasal congestion and Reports sore throat Cardiovascular: Cardiovascular: Denies chest pain and Denies radiating jaw, neck or arm pain Respiratory: Respiratory: Reports cough and Denies dyspnea Gastrointestinal: Gastrointestinal: Denies vomiting Allergic/Immunologic: Allergic/Immunologic: Denies lip swelling and Denies throat swelling [facility] Past Medical History Medical History (Updated 08/21/21 @ 22:36 by Chepe Beaulieu MD) Anxiety Asthma Pharyngitis Upper respiratory infection Social History Social History Smoking packs per day: 1 Smoking cigarettes per day: 20.0 Smoking status: Current every day smoker Tobacco type: cigarettes Alcohol intake: current Alcohol use details: Occasional Substance use: never Gender identity (if verbalized by the patient): Female Exam Const: General: healthy appearing and alert Orientation/consciousness: patient oriented x3 Limitations: no limitations Other: mild acute distress per HENMT: Head: normal to inspection Ears: external ears normal, TM's normal bilaterally and EAC's normal General nose exam: Normal nares present Face and sinus: normal facial exam Mouth: Yes moist mucous membranes Throat: posterior oropharynx normal Eyes: Conjunctivae: conjunctivae normal Pupils: Equal, round and reactive pupils present EOM: EOMs intact bilaterally Resp: Effort & Inspection: normal respiratory effort and not labored Auscultation: clear to auscultation bilaterally, no rales, no rhonchi and no wheezes Other: frequent cough Cardio: Rate: regular rate Rhythm: regular rhythm Heart sounds: no murmurs Skin: General skin exam: normal color, no jaundice and no pallor Rashes: no rashes Neuro: General: patient oriented x3, moves all extremities, no focal motor deficits and CN's II-XI intact bilaterally Speech: normal speech Gait exam (Neuro): Normal gait present Extrem: General: normal to inspection and no clubbing, cyanosis or edema Psych: Appearance: grossly normal and well kempt Mental Status: mental status grossly normal Affect: normal affect Attitude: cooperative Thought content: Yes Normal thought content present Discharge Plan Discharge Clinical Impression: Bronchitis, Acute bronchospasm Patient Disposition: Home, Self-Care Condition: Stable Instructions: Antibiotic Form,
[2021-08-21 23:16] LABS: SARS-CoV-2 Ag Negative (Negative)
[2021-08-21 23:23] VITALS: BP 142/94; PULSE 93; RESP 20; TEMP 37.1; O2SAT 98
--- NOTE | 2021-08-22 15:33 | PC.NURSE ---
[facility] called and stated the Benzonatate was not covered. Per the insurance company codeine or Flovent is covered. Dr. Lucia states pt can take Robitussin OTC.
== END 2021-08-21 23:24 | disposition home or self-care (01) ==
PROVIDERS: Emergency Provider Emergency Medicine; PCP Physician Assistant
DX: J40 Bronchitis, not specified as acute or chronic (principal); J98.01 Acute bronchospasm; Z20.822 Contact with and (suspected) exposure to COVID-19
CPT/HCPCS: 87426; 99283; C9803

== ENCOUNTER 2021-11-17 19:22 | Emergency (ER) | payer OTHER, SELFPAY ==
--- NOTE | 2021-11-17 20:36 | PC.NURSE ---
flu and covid nasal swabs sent to lab
[2021-11-17 20:38] VITALS: BP 129/72; PULSE 61; RESP 18; TEMP 36.9; O2SAT 98
--- NOTE | 2021-11-17 20:39 | ED.HA ---
HPI - Headache General Chief Complaint: Headache Stated Complaint: headaches, body aches Time Seen by Provider: 11/17/21 20:39 Source: patient Mode of arrival: ambulatory History of Present Illness HPI Narrative: is a 21-year-old female that presents with body aches headache has diarrhea with no shortness of breath no chest pain currently no fever chills patient is not vaccinated for COVID and was exposed to COVID approximately 2 weeks ago. MD elicited complaint: headache Onset (ago): day(s) Onset description: gradually Severity: mild Quality & Timing: aching Related Data Home Medications Medication Instructions Recorded Confirmed gabapentin 300 mg PO DAILY 06/05/21 08/21/21 Allergies Allergy/AdvReac Type Severity Reaction Status Date / Time No Known Allergies Allergy Verified 11/17/21 20:34 Review of Systems Review of Systems: All systems reviewed & are unremarkable except as noted in HPI and below PMFSH Past Medical History Medical History Anxiety Asthma Pharyngitis Upper respiratory infection Social History Social History Smoking packs per day: 1 Smoking cigarettes per day: 20.0 Smoking status: Current every day smoker Tobacco type: cigarettes Alcohol intake: current Alcohol use details: Occasional Substance use: never Gender identity (if verbalized by the patient): Female Exam Const: General: no acute distress Orientation/consciousness: patient oriented x3 HENMT: Head: normal to inspection Eyes: Conjunctivae: conjunctivae normal Pupils: Equal, round and reactive pupils present Neck: Neck: normal visual inspection Chest: Chest palpation & inspection: normal inspection of the chest Resp: Effort & Inspection: normal respiratory effort Cardio: Rate: regular rate Rhythm: regular rhythm GI: GI Palp: Yes Soft to palpation : General: Yes no CVA tenderness Urinary Catheter: Urinary Catheter: patent and draining Back/Spine/Pelvis: Back: no CVA tenderness Skin: General skin exam: normal color Rashes: no rashes Neuro: General: patient oriented x3 and moves all extremities Extrem: General: normal to inspection Psych: Mental Status: mental status grossly normal Course Course Emergency Course: Patient influenza and COVID reviewed with patient, patient received IV fluids and 1g of p.o. Tylenol. MDM - Headache Lab Data Labs: Lab Results 11/17/21 11/17/21 Range/Units 20:34 20:34 Influenza Type A Ag Pending Influenza Type B Ag Pending SARS-CoV-2 Ag (Rapid) Pending Critical Care Time Critical Care Time Critical Care Time: No Discharge Plan Discharge Clinical Impression: Viral syndrome Patient Disposition: Home, Self-Care Condition: Stable Instructions: Antibiotic Form, Viral Syndrome (ED) Additional Instructions: advise Tylenol or Motrin drink plenty of fluids and follow-up primary care physician within 1 to 2 weeks if symptoms persist or worsen. Prescriptions: No Action gabapentin 300 mg capsule 300 mg PO DAILY RF: 0 Follow-up/Referrals: Angelique,RACHELE Aguila [Primary Care Provider] - Stand Alone Forms: Work/School Release IP Time of Disposition: 21:06
[2021-11-17 20:57] LABS: Influenza Control Valid (Valid)
[2021-11-17 20:58] LABS: SARS-CoV-2 Ag Negative (Negative)
[2021-11-17] MEDS: ACETAMINOPHEN 500 MG TABLET 1000 MG PO (20:58)
[2021-11-17] MEDS: SODIUM CHLORIDE 0.9% IV 500 ML 999 ML IV CONT (21:00)
[2021-11-17 22:11] VITALS: BP 122/66; PULSE 56; RESP 17; TEMP 36.7; O2SAT 98
== END 2021-11-17 22:14 | disposition home or self-care (01) ==
PROVIDERS: Emergency Provider Emergency Medicine; PCP Physician Assistant
DX: B34.9 Viral infection, unspecified (principal); Z20.822 Contact with and (suspected) exposure to COVID-19
CPT/HCPCS: 87426; 87804; 96360; 99283; C9803; J7040

== ENCOUNTER 2021-11-30 12:05 | Emergency (ER) | payer OTHER, SELFPAY ==
--- NOTE | 2021-11-30 12:12 | ED.ABDPAIN ---
HPI - Abdominal Pain General Chief Complaint: Abdominal Pain Stated Complaint: abdominal pain especially in left side Time Seen by Provider: 11/30/21 12:12 Source: patient History of Present Illness HPI narrative: 21-year-old female with a history of asthma, anxiety was seen recently for headache and diarrhea. She presents ER with a 1 day history of -- abdominal pain and left flank pain. -- No fever/chills. No dysuria/ hematuria. No nausea/vomiting. She has intermittent diarrhea. MD elicited complaint: abdominal pain and flank pain Pertinent past history: none Onset (ago): day(s) ( Started 1 day ago.) Pain Consistency: intermittent Location: suprapubic Severity: moderate Quality: aching Radiation: none Migration to: no migration Exacerbating factors: nothing Relieving factors: nothing Associated symptoms: denies other symptoms and diarrhea Related Data Hx Last Menstrual Period: Patient is on an injectable contraceptive. Home Medications Medication Instructions Recorded Confirmed No Home Medications 11/30/21 11/30/21 Allergies Allergy/AdvReac Type Severity Reaction Status Date / Time No Known Allergies Allergy Verified 11/30/21 12:28 Review of Systems Review of Systems: All systems reviewed & are unremarkable except as noted in HPI and below Constitutional: Constitutional: Reports as per HPI and Reports no additional constitutional complaints Eyes: Eyes: Reports as per HPI and Reports no additional eye complaints ENT: Reports system reviewed and no additional complaints, except as documented Cardiovascular: Cardiovascular: Reports as per HPI and Reports no additional cardiovascular complaints Respiratory: Respiratory: Reports as per HPI and Reports no additional respiratory complaints Gastrointestinal: Gastrointestinal: Reports no additional gastrointestinal complaints, Reports abdominal pain and Reports diarrhea Genitourinary: Genitourinary: Reports no additional female genitourinary complaints Musculoskeletal: Musculoskeletal: Reports no additional musculoskeletal complaints Integumentary/Breasts: Skin/Breast: Reports system reviewed and no additional complaints, except as docu Neurologic: Reports system reviewed and no additional complaints, except as documented Psychiatric: Psychiatric: Reports no additional psychiatric complaints Endocrine: Endocrine: Reports no additional endocrine complaints Hematologic/Lymphatic: Hematologic/Lymphatic: Reports no additional hematologic/lymphatic complaints Allergic/Immunologic: Allergic/Immunologic: Reports no additional allergic/immunologic complaints PMFSH Past Medical History Medical History Anxiety Asthma Pharyngitis Upper respiratory infection Social History Social History Smoking packs per day: 1 Smoking cigarettes per day: 20.0 Smoking status: Current every day smoker Tobacco type: cigarettes Alcohol intake: current Alcohol use details: Occasional Substance use: never Gender identity (if verbalized by the patient): Female Exam Const: General: no acute distress and alert Orientation/consciousness: patient oriented x3 HENMT: Head: normal to inspection Eyes: Conjunctivae: conjunctivae normal Pupils: Equal, round and reactive pupils present EOM: EOMs intact bilaterally Neck: Neck: normal visual inspection and no lymphadenopathy Chest: Chest palpation & inspection: normal inspection of the chest and abnormal inspection of the chest Resp: Effort & Inspection: normal respiratory effort Auscultation: clear to auscultation bilaterally Cardio: Rate: regular rate Rhythm: regular rhythm GI: GI Palp: Yes Soft to palpation Other: suprapubic tenderness without any rigidity / rebound. : General: Yes CVA tenderness ( Left CVA tenderness) on the left Back/Spine/Pelvis: Back: CVA tenderness Skin
[2021-11-30 12:28] VITALS: BP 144/90; PULSE 68; RESP 16; TEMP 36.1; O2SAT 99
[2021-11-30 12:36] LABS: Add Urine Microscopic? NO; Appearance Urine Clear (Clear); Basophils Absolute Auto 0.06 K/mm3 (0.00-0.10); Basophils Percent Auto 0.9 % (0.0-1.0); Bilirubin Urine Negative (Negative); Blood Urine Negative (Negative); Color Urine Light Yellow (Yellow); Eosinophils Absolute Auto 0.16 K/mm3 (0.02-0.50); Eosinophils Percent Auto 2.3 % (1.0-6.0); Glucose Urine UA Negative (Negative); Immature Granulocyte Absolute 0.01 K/mm3 (0.00-0.00); Immature Granulocyte Percent A 0.1 % (0.0-0.0); Ketones Urine Negative (Negative); Leukocyte Esterase Ur Negative (Negative); Lymphocytes Absolute Auto 1.98 K/mm3 (1.10-4.50); Lymphocytes Percent Auto 28.7 % (18.0-42.0); Mean Corpuscular HGB Conc 33.3 g/dL (32.0-36.0); Mean Corpuscular Hemoglobin 29.7 pg (27.0-31.0); Mean Platelet Volume 11.9 fl (9.2-11.8); Monocytes Absolute Auto 0.36 K/mm3 (0.10-0.90); Monocytes Percent Auto 5.2 % (2.0-11.0); Neutrophils Absolute Auto 4.3 K/mm3 (1.7-7.2); Neutrophils Percent Auto 62.8 % (50.0-70.0); Nitrate Urine Negative (Negative); Platelet Count Result 179 K/mm3 (150-420); Protein Urine Negative (Negative); Red Blood Count 4.72 M/mm3 (4.20-5.40); Red Cell Distribution Width 13.2 % (11.6-14.4); Specific Grav Ur 1.025 (1.010-1.020); Urobilinogen Urine 0.2 mg/dL (0.2-1.0); White Blood Count 6.9 K/mm3 (4.8-10.8)
[2021-11-30 12:39] LABS: Pregnancy On Board Control Positive; Urine Pregnancy Test Negative
[2021-11-30 12:52] LABS: Alanine Aminotransferase 18 U/L (14-59); Albumin Level 4.1 g/dL (3.4-5.0); Alkaline Phosphatase 63 U/L (46-116); Anion Gap 11 mmol/L (8-16); Aspartate Amino Transferase 11 U/L (15-37); Bilirubin,Total 0.5 mg/dL (0.00-1.00); Blood Urea Nitrogen 10 mg/dL (7-18); Calcium 8.8 mg/dL (8.5-10.1); Carbon Dioxide 24 mmol/L (21-32); Chloride 108 mmol/L (98-108); Estimated CRCL calculation 74 ml/min; Estimated Glomerular Filt Rate > 60; Glucose 103 mg/dL (70-99); Lipase 162 U/L (73-393); Osmolality Calculated 295 mOsm/kg (285-295); Potassium 3.7 mmol/L (3.5-5.1); Sodium 143 mmol/L (136-145)
[2021-11-30] MEDS: HYDROcodone/acetaminophen (*CRX) 5-325 MG TABLET 1 TAB PO (13:33)
[2021-11-30 13:41] VITALS: BP 125/90; PULSE 94; RESP 20; TEMP 36.9; O2SAT 99
== END 2021-11-30 13:42 | disposition home or self-care (01) ==
PROVIDERS: Emergency Provider Internal Medicine Critical Care Medicine; PCP Physician Assistant
DX: R10.30 Lower abdominal pain, unspecified (principal)
CPT/HCPCS: 36415; 80053; 81003; 81025; 83690; 85025; 99283; A9270

== ENCOUNTER 2022-01-17 11:26 | Emergency (ER) | payer OTHER, SELFPAY ==
--- NOTE | 2022-01-17 11:41 | ED.NAVMDI ---
HPI - Nausea/Vomiting/Diarrhea General Chief complaint: Nausea/Vomiting/Diarrhea Stated complaint: STOMACH FLU Time Seen by Provider: 01/17/22 11:41 Source: patient History of Present Illness HPI Narrative: 21-year-old female past history anxiety presents to the a one-day history of -- vomiting and diarrhea. she 1 and 1 episode diarrhea morning. Abdominal pain. -- Patient needs a note to be excused from work today. MD elicited complaint: nausea, vomiting and diarrhea Onset (ago): day(s) ( Started yesterday.) Description of vomiting: watery Description of diarrhea: watery Associated nausea: Yes Associated abdominal pain: No Exacerbating factors: none Relieving factors: none Associated symptoms: denies other symptoms Related Data Allergies Allergy/AdvReac Type Severity Reaction Status Date / Time No Known Allergies Allergy Verified 01/17/22 11:44 Review of Systems Review of Systems: All systems reviewed & are unremarkable except as noted in HPI and below Constitutional: Constitutional: Reports as per HPI and Reports no additional constitutional complaints Eyes: Eyes: Reports as per HPI and Reports no additional eye complaints ENT: Reports system reviewed and no additional complaints, except as documented Cardiovascular: Cardiovascular: Reports as per HPI and Reports no additional cardiovascular complaints Respiratory: Respiratory: Reports as per HPI and Reports no additional respiratory complaints Gastrointestinal: Gastrointestinal: Reports as per HPI, Reports no additional gastrointestinal complaints, Reports diarrhea and Reports vomiting Genitourinary: Genitourinary: Reports no additional female genitourinary complaints and Reports as per HPI Musculoskeletal: Musculoskeletal: Reports no additional musculoskeletal complaints and Reports as per HPI Integumentary/Breasts: Skin/Breast: Reports system reviewed and no additional complaints, except as docu and Reports as per HPI Neurologic: Reports system reviewed and no additional complaints, except as documented and Reports as per HPI Psychiatric: Psychiatric: Reports no additional psychiatric complaints and Reports as per HPI Endocrine: Endocrine: Reports no additional endocrine complaints and Reports as per HPI Hematologic/Lymphatic: Hematologic/Lymphatic: Reports no additional hematologic/lymphatic complaints and Reports as per HPI Allergic/Immunologic: Allergic/Immunologic: Reports no additional allergic/immunologic complaints and Reports as per HPI [facility] Past Medical History Medical History Anxiety Asthma Pharyngitis Upper respiratory infection Social History Social History Smoking packs per day: 1 Smoking cigarettes per day: 20.0 Smoking status: Current every day smoker Tobacco type: cigarettes Alcohol intake: current Alcohol use details: Occasional Substance use: never Gender identity (if verbalized by the patient): Female Exam Const: General: cooperative and healthy appearing HENMT: Head: normal to inspection, No palpable skull fracture present, normocephalic and atraumatic Ears: hearing grossly normal bilaterally and external ears normal General nose exam: Normal external nose present Face and sinus: normal facial exam Mouth: Yes Normal oral and palatal mucosa present Throat: posterior oropharynx normal and tonsils normal Eyes: General: appearance normal, both eyes and all related structures Neck: Neck: normal visual inspection and full ROM Chest: Chest palpation & inspection: normal inspection of the chest Resp: Effort & Inspection: normal respiratory effort and able to speak in complete sentences Auscultation: clear to auscultation bilaterally Cardio: Palpation: normal PMI Rate: regular rate Rhythm: regular rhythm Heart sounds: S1 normal heart sound present and S2 normal heart sound present GI: I
[2022-01-17 11:44] VITALS: BP 116/81; PULSE 101; RESP 16; TEMP 36.4; O2SAT 97
[2022-01-17 11:56] VITALS: BP 116/81; PULSE 101; RESP 16; TEMP 36.4; O2SAT 97
== END 2022-01-17 12:00 | disposition home or self-care (01) ==
PROVIDERS: Emergency Provider Internal Medicine Critical Care Medicine; PCP Physician Assistant
DX: K52.9 Noninfective gastroenteritis and colitis, unspecified (principal)
CPT/HCPCS: 99283

== ENCOUNTER 2022-02-08 12:40 | Emergency (ER) | payer OTHER, SELFPAY ==
[2022-02-08 13:00] VITALS: BP 131/91; PULSE 91; RESP 16; TEMP 35.9; O2SAT 99
--- NOTE | 2022-02-08 13:12 | ED.URI ---
HPI - URI/Sore Throat General Chief Complaint: Upper Respiratory Infection Stated Complaint: RUNNY NOSE COUGH SCHMITT Time Seen by Provider: 02/08/22 13:12 Source: patient History of Present Illness HPI Narrative: 21-year-old history was seen in the ER for gastroenteritis On 01/17/2022. She presents to the ER today for -- cough. she was due to a 10 and anger management class and was asked to come to the ER to make sure she does not have any infection including COVID. elicited complaint: cough Onset (ago): day(s) ( 3 days) Treatments prior to arrival: none Related Data Home Medications Medication Instructions Recorded Confirmed No Home Medications 02/08/22 02/08/22 Allergies Allergy/AdvReac Type Severity Reaction Status Date / Time No Known Allergies Allergy Verified 02/08/22 13:03 Review of Systems Review of Systems: All systems reviewed & are unremarkable except as noted in HPI and below Constitutional: Constitutional: Reports as per HPI and Reports no additional constitutional complaints Eyes: Eyes: Reports as per HPI and Reports no additional eye complaints ENT: Reports system reviewed and no additional complaints, except as documented and Reports as per HPI Cardiovascular: Cardiovascular: Reports as per HPI and Reports no additional cardiovascular complaints Respiratory: Respiratory: Reports as per HPI, Reports no additional respiratory complaints and Reports cough Gastrointestinal: Gastrointestinal: Reports as per HPI and Reports no additional gastrointestinal complaints Genitourinary: Genitourinary: Reports no additional female genitourinary complaints and Reports as per HPI Musculoskeletal: Musculoskeletal: Reports no additional musculoskeletal complaints and Reports as per HPI Integumentary/Breasts: Skin/Breast: Reports system reviewed and no additional complaints, except as docu and Reports as per HPI Neurologic: Reports system reviewed and no additional complaints, except as documented and Reports as per HPI Psychiatric: Psychiatric: Reports no additional psychiatric complaints and Reports as per HPI Endocrine: Endocrine: Reports no additional endocrine complaints and Reports as per HPI Hematologic/Lymphatic: Hematologic/Lymphatic: Reports no additional hematologic/lymphatic complaints and Reports as per HPI Allergic/Immunologic: Allergic/Immunologic: Reports no additional allergic/immunologic complaints and Reports as per HPI PMF Past Medical History Medical History Anxiety Asthma Pharyngitis Upper respiratory infection Social History Social History Smoking packs per day: 1 Smoking cigarettes per day: 20.0 Smoking status: Current every day smoker Tobacco type: cigarettes Alcohol intake: current Alcohol use details: Occasional Substance use: never Gender identity (if verbalized by the patient): Female Exam Const: General: no acute distress and alert Orientation/consciousness: patient oriented x3 HENMT: Head: normal to inspection Eyes: Conjunctivae: conjunctivae normal Pupils: Equal, round and reactive pupils present EOM: EOMs intact bilaterally Neck: Neck: normal visual inspection, no lymphadenopathy and no meningeal signs Chest: Chest palpation & inspection: normal inspection of the chest Resp: Auscultation: clear to auscultation bilaterally Cardio: Rate: regular rate Rhythm: regular rhythm GI: GI Palp: Yes Soft to palpation Other: no tenderness/rigidity /rebound : General: Yes no CVA tenderness Back/Spine/Pelvis: Back: no CVA tenderness Skin: General skin exam: normal color Rashes: no rashes Neuro: General: patient oriented x3, moves all extremities, no meningeal signs, no focal motor deficits and CN's II-XI intact bilaterally Extrem: General: normal to inspection and no pedal edema Psych: Mental Status: mental status g
[2022-02-08 14:00] VITALS: O2SAT 100
[2022-02-08 14:11] LABS: Influenza A QL RT-PCR Negative (Negative); Influenza B QL RT-PCR Negative (Negative); SARS-CoV-2 RNA PCR Negative (Negative)
[2022-02-08 14:29] VITALS: BP 136/85; PULSE 94; RESP 16; TEMP 36.9; O2SAT 100
== END 2022-02-08 14:30 | disposition home or self-care (01) ==
PROVIDERS: Emergency Provider Internal Medicine Critical Care Medicine; PCP Physician Assistant
DX: J06.9 Acute upper respiratory infection, unspecified (principal); Z20.822 Contact with and (suspected) exposure to COVID-19
CPT/HCPCS: 87081; 87502; 87880; 99283; C9803; U0003; U0005

== ENCOUNTER 2022-03-31 22:13 | Emergency (ER) | payer OTHER, SELFPAY ==
--- NOTE | ~2022-03-31 | XR_ITS ---
EXAMINATION: XR chest 1V portable INDICATION: Left chest pain TECHNIQUE: Portable AP chest at 2322 hours COMPARISON: None available FINDINGS: There is mild soft tissue swelling in the lower left lateral chest wall. There are minimal airspace opacities of the left lung base. No pleural effusion or pneumothorax. The cardiomediastinal silhouette is normal. IMPRESSION: 1. Soft tissue swelling of the left lateral chest wall with minimal adjacent airspace opacities of th e left lung base, likely atelectasis or possible pulmonary contusion. Reviewed, dictated and finalized at location A. IMPRESSION: 1. Soft tissue swelling of the left lateral chest wall with minimal adjacent ai rspace opacities of the left lung base, likely atelectasis or possible pulmonar y contusion.
[2022-03-31 22:25] VITALS: BP 144/115; PULSE 107; RESP 18; TEMP 36.8; O2SAT 100
--- NOTE | 2022-03-31 22:26 | ED.FALL ---
HPI - Fall General Chief Complaint: Fall Stated Complaint: breast/head pain after fall Time Seen by Provider: 03/31/22 22:27 Source: patient History of Present Illness HPI Narrative: 21-year-old female fell 4 days ago coming down the stairs. She fell on her left breast and presents to the ER with -- left breast pain and left breast lump. other injuries noted. No head injury. No loss of consciousness. MD complaint: fall Onset (ago): day(s) ( Fell 4 days ago.) Fall from: down stairs (#) ( Fell down 4 steps.) Fall witnessed: no Place fall occurred: home Loss of consciousness: none Prolonged down time: no Symptoms prior to fall: none Context: tripped/slipped Location of injury: chest Severity: moderate Quality: aching Related Data Home Medications Medication Instructions Recorded Confirmed No Home Medications 02/08/22 02/08/22 Allergies Allergy/AdvReac Type Severity Reaction Status Date / Time No Known Allergies Allergy Verified 02/08/22 13:03 Review of Systems Review of Systems: All systems reviewed & are unremarkable except as noted in HPI and below Constitutional: Constitutional: Reports as per HPI and Reports no additional constitutional complaints Eyes: Eyes: Reports as per HPI and Reports no additional eye complaints ENT: Reports system reviewed and no additional complaints, except as documented and Reports as per HPI Cardiovascular: Cardiovascular: Reports as per HPI and Reports no additional cardiovascular complaints Respiratory: Respiratory: Reports as per HPI and Reports no additional respiratory complaints Gastrointestinal: Gastrointestinal: Reports as per HPI and Reports no additional gastrointestinal complaints Musculoskeletal: Musculoskeletal: Reports no additional musculoskeletal complaints and Reports as per HPI Integumentary/Breasts: Skin/Breast: Reports system reviewed and no additional complaints, except as docu and Reports breast pain Comments: Left breast pain left breast lump at 9:00 position Neurologic: Reports system reviewed and no additional complaints, except as documented and Reports as per HPI Psychiatric: Psychiatric: Reports no additional psychiatric complaints and Reports as per HPI Endocrine: Endocrine: Reports no additional endocrine complaints and Reports as per HPI Hematologic/Lymphatic: Hematologic/Lymphatic: Reports no additional hematologic/lymphatic complaints and Reports as per HPI Allergic/Immunologic: Allergic/Immunologic: Reports no additional allergic/immunologic complaints and Reports as per HPI [facility] Past Medical History Medical History Anxiety Asthma Pharyngitis Upper respiratory infection Social History Social History Smoking packs per day: 1 Smoking cigarettes per day: 20.0 Smoking status: Current every day smoker Tobacco type: cigarettes Alcohol intake: current Alcohol use details: Occasional Substance use: never Gender identity (if verbalized by the patient): Female Exam Const: General: healthy appearing, no acute distress and alert Nutritional Appearance: well nourished Orientation/consciousness: patient oriented x3 Limitations: no limitations HENMT: Head: normal to inspection Ears: external ears normal General nose exam: Normal external nose present Face and sinus: normal facial exam Mouth: Yes Normal oral and palatal mucosa present Eyes: Conjunctivae: conjunctivae normal Pupils: Equal, round and reactive pupils present EOM: EOMs intact bilaterally Neck: Neck: normal visual inspection Chest: Chest palpation & inspection: normal inspection of the chest Resp: Effort & Inspection: normal respiratory effort Auscultation: clear to auscultation bilaterally Cardio: Rate: regular rate Rhythm: regular rhythm GI: Auscultation: normal bowel sounds Back/Spine/Pelvis: Back: no CVA tenderness
--- NOTE | 2022-03-31 23:06 | ECG_ITS ---
Measurements Intervals [place] Rate: 95 P: -3 [place]: 132 QRS: 50 QRSD: 79 T: 20 QT: 247 QTc: 312 Interpretive Statements DIFFICULT INTERPRETATION BECAUSE OF BASELINE ARTIFACT SINUS RHYTHM NONSPECIFIC T-WAVE ABNORMALITY COMPARED TO ECG 06/05/2021 16:31:16 NONSPECIFIC T-WAVE FLATTENING IS NOTED Electronically Signed On 04-01-2022 7:58:36 CDT by Nick Huertas M.D.
[2022-03-31 23:39] LABS: Basophils Absolute Auto 0.09 K/mm3 (0.00-0.10); Basophils Percent Auto 0.9 % (0.0-1.0); Eosinophils Absolute Auto 0.16 K/mm3 (0.02-0.50); Eosinophils Percent Auto 1.6 % (1.0-6.0); Hemoglobin 14.3 g/dL (12.0-15.0); Immature Granulocyte Absolute 0.03 K/mm3 (0.00-0.00); Immature Granulocyte Percent A 0.3 % (0.0-0.0); Lymphocytes Absolute Auto 2.95 K/mm3 (1.10-4.50); Lymphocytes Percent Auto 29.5 % (18.0-42.0); Mean Corpuscular HGB Conc 33.3 g/dL (32.0-36.0); Mean Corpuscular Hemoglobin 30.3 pg (27.0-31.0); Mean Corpuscular Volume 91.1 fL (78.0-102.0); Mean Platelet Volume 12.5 fl (9.2-11.8); Monocytes Absolute Auto 0.58 K/mm3 (0.10-0.90); Monocytes Percent Auto 5.8 % (2.0-11.0); Neutrophils Absolute Auto 6.2 K/mm3 (1.7-7.2); Neutrophils Percent Auto 61.9 % (50.0-70.0); Platelet Count Result 239 K/mm3 (150-420); Red Blood Count 4.72 M/mm3 (4.20-5.40); Red Cell Distribution Width 12.8 % (11.6-14.4)
[2022-04-01] LABS: Albumin Level 4.5 g/dL (3.4-5.0); Alkaline Phosphatase 81 U/L (46-116); Anion Gap 10 mmol/L (8-16); Aspartate Amino Transferase < 10 U/L (15-37); Bilirubin,Total 0.3 mg/dL (0.00-1.00); Blood Urea Nitrogen 8 mg/dL (7-18); Calcium 8.7 mg/dL (8.5-10.1); Carbon Dioxide 24 mmol/L (21-32); Chloride 107 mmol/L (98-108); Estimated Glomerular Filt Rate > 60; Glucose 85 mg/dL (70-99); Osmolality Calculated 289 mOsm/kg (285-295); Potassium 3.4 mmol/L (3.5-5.1); Sodium 141 mmol/L (136-145); Total Protein 7.5 g/dL (6.4-8.2); Troponin I 5.1 ng/L (0.00-60.4)
[2022-04-01 00:04] LABS: Alanine Aminotransferase < 6 U/L (14-59)
[2022-04-01] MEDS: KETOROLAC 30 MG/ML VIAL (*BKC) IM (00:06)
[2022-04-01] MEDS: POTASSIUM CHLORIDE 20 MEQ TABLET PO (00:28)
[2022-04-01 00:36] VITALS: PULSE 98; RESP 16; O2SAT 99
== END 2022-04-01 00:37 | disposition home or self-care (01) ==
PROVIDERS: Emergency Provider Internal Medicine Critical Care Medicine; PCP Physician Assistant
DX: N63.20 Unspecified lump in the left breast, unspecified quadrant (principal); N64.4 Mastodynia; F41.9 Anxiety disorder, unspecified; R07.89 Other chest pain; W19.XXXA Unspecified fall, initial encounter; F17.200 Nicotine dependence, unspecified, uncomplicated
CPT/HCPCS: 36415; 71045; 80053; 84484; 85025; 93005; 96372; 99284; A9270; J1885

== ENCOUNTER 2022-05-11 18:48 | Emergency (ER) | payer OTHER, SELFPAY ==
[2022-05-11] VITALS (7 sets, daily range): BP systolic 108–138; BP diastolic 69–89; PULSE 67–104; RESP 15–24; TEMP 36.7; O2SAT 93–100
--- NOTE | ~2022-05-11 | CT_ITS ---
EXAMINATION: CT brain wo con DATE: 05/11/2022 20:47 INDICATION: Alcohol intoxication with altered mental status post head injury with loss of consciousne ss TECHNIQUE: Computed tomography (CT) of the head was performed without intravenous contrast. Sagittal and coronal reconstructions were performed. The mA was adjusted according to patient size. Iterative reconstruction technique was employed. The dose-length product was 605.33 mGy-cm. COMPARISON: None FINDINGS: No calvarial fracture. No acute intracranial hemorrhage, acute infarction or abnormal extra axial flu id collection. Ventricles are normal and symmetric. No mass/mass effect. Mucosal thickening in the bi lateral ethmoid, frontal, maxillary and right sphenoid sinuses. Low-attenuation dependently layering fluid/mucus in the bilateral maxillary sinuses. The orbits and mastoid air cells are normal. IMPRESSION: 1. Normal brain. No fracture or acute intracranial process. 2. Sinus disease with low-density fluid/mucus in the bilateral maxillary sinuses. Correlate clinicall y for acute sinusitis. Reviewed, dictated and finalized at location A. IMPRESSION: 1. Normal brain. No fracture or acute intracranial process. 2. Sinus disease with low-density fluid/mucus in the bilateral maxillary sinuse s. Correlate clinically for acute sinusitis.
--- NOTE | ~2022-05-11 | XR_ITS ---
EXAMINATION: XR pelvis 1-2V DATE: 05/11/2022 20:47 INDICATION: Fall while intoxicated. TECHNIQUE: An anteroposterior view of the pelvis was obtained. COMPARISON: None. FINDINGS: Alignment is normal. No fracture. Joint spaces are normal. Soft tissues are unremarkable. IMPRESSION: 1. Negative pelvis radiographs. Reviewed, dictated and finalized at location A.
--- NOTE | ~2022-05-11 | XR_ITS ---
EXAMINATION: XR chest 1V portable DATE: 05/11/2022 20:47 INDICATION: Intoxication and fall. Possible aspiration. TECHNIQUE: frontal view of the chest was obtained. COMPARISON: Chest radiograph dated 03/31/2022 FINDINGS: The lungs remain clear with no focal airspace opacities, pulmonary edema, pleural effusion or pneumot horax. The cardiomediastinal silhouette is normal. Visualized bones and soft tissues are unremarkable . IMPRESSION: 1. Normal chest radiograph. Reviewed, dictated and finalized at location A. IMPRESSION: 1. Normal chest radiograph.
--- NOTE | ~2022-05-11 | CT_ITS ---
EXAMINATION: CT cervical spine wo con DATE: 05/11/2022 20:47 INDICATION: Head injury post fall with altered mental status TECHNIQUE: Computed tomography (CT) of the cervical spine was performed without intravenous contrast. Automated exposure control and iterative reconstruction technique were employed. The dose-length pro duct was 371.24 mGy-cm. COMPARISON: None FINDINGS: Likely positional mild reversal of the normal cervical lordosis and mild levocurvature. No spondyloli sthesis or facet subluxation. Vertebral body and disc heights are normal. No fracture. Cervical facet and uncovertebral joints are normal. No central canal or neural foraminal stenosis. Cervical soft ti ssues tissues are unremarkable. Visualized apices of lungs are clear. Bubbly mucus/debris in the esop hagus as well as the supraglottic laryngeal penetration. IMPRESSION: 1. Likely positional mild levocurvature and reversal of the normal cervical lordosis. No other osseou s abnormality. Reviewed, dictated and finalized at location A. IMPRESSION: 1. Likely positional mild levocurvature and reversal of the normal cervical shant dosis. No other osseous abnormality.
--- NOTE | 2022-05-11 18:52 | ED.AMS ---
HPI - Altered Mental Status General Chief Complaint: Altered Mental Status Stated Complaint: ambulance Time Seen by Provider: 05/11/22 18:52 Source: patient Mode of arrival: EMS History of Present Illness HPI narrative: 21-year-old female, smoker with anxiety was brought in by EMS -- found on the road with multiple bruises and 1 cm laceration over the left eye -- intoxicated -- agitated and restless. The patient received naloxone without any benefit. The EMS was called by the police. MD complaint: altered mental status and intoxication Onset (ago): unknown Severity: severe Context: alcohol abuse Associated symptoms: denies other symptoms Related Data Home Medications Medication Instructions Recorded Confirmed No Home Medications 02/08/22 05/11/22 Allergies Allergy/AdvReac Type Severity Reaction Status Date / Time No Known Allergies Allergy Verified 05/11/22 19:23 Review of Systems Review of Systems: All systems reviewed & are unremarkable except as noted in HPI and below Constitutional: Constitutional: Reports as per HPI and Reports no additional constitutional complaints Eyes: Eyes: Reports as per HPI and Reports no additional eye complaints ENT: Reports system reviewed and no additional complaints, except as documented and Reports as per HPI Cardiovascular: Cardiovascular: Reports as per HPI and Reports no additional cardiovascular complaints Respiratory: Respiratory: Reports as per HPI and Reports no additional respiratory complaints Genitourinary: Genitourinary: Reports no additional female genitourinary complaints and Reports as per HPI Musculoskeletal: Musculoskeletal: Reports no additional musculoskeletal complaints and Reports as per HPI Integumentary/Breasts: Skin/Breast: Reports system reviewed and no additional complaints, except as docu and Reports as per HPI Comments: left eyebrow laceration--1 cm Neurologic: Reports confusion and Reports weakness Endocrine: Endocrine: Reports no additional endocrine complaints and Reports as per HPI Hematologic/Lymphatic: Hematologic/Lymphatic: Reports no additional hematologic/lymphatic complaints and Reports as per HPI Allergic/Immunologic: Allergic/Immunologic: Reports no additional allergic/immunologic complaints and Reports as per HPI PMFSH Past Medical History Medical History Anxiety Asthma Pharyngitis Upper respiratory infection Social History Social History Smoking packs per day: 1 Smoking cigarettes per day: 20.0 Smoking status: Current every day smoker Tobacco type: cigarettes Alcohol intake: current Alcohol use details: Occasional Substance use: never Gender identity (if verbalized by the patient): Female Exam Const: General: confusion and ill appearing Limitations: altered mental status Other: patient is intoxicated. She was thrashing around and agitated. Her talk does not make any sense. She was having visual hallucinations HENMT: Head: laceration ( 1 cm left eyebrow laceration) Ears: external ears normal General nose exam: Normal external nose present Face and sinus: normal facial exam Mouth: Yes Normal oral and palatal mucosa present Throat: posterior oropharynx normal Eyes: Conjunctivae: conjunctivae normal Pupils: Equal, round and reactive pupils present Direct Ophthalmoscopy: no photophobia Neck: Neck: normal visual inspection, no lymphadenopathy and no meningeal signs Chest: Chest palpation & inspection: normal inspection of the chest Resp: Effort & Inspection: normal respiratory effort Auscultation: clear to auscultation bilaterally Cardio: Rate: regular rate Rhythm: regular rhythm GI: GI Palp: Yes Soft to palpation Other: no tenderness/rigidity /rebound : General: Yes no CVA tenderness Back/Spine/Pelvis: Back: no CVA tenderness Skin: Other:
[2022-05-11] MEDS: OLANZapine 10 MG INJ VIAL 5 MG IM (19:00)
--- NOTE | 2022-05-11 19:02 | ECG_ITS ---
Measurements Intervals [place] Rate: 75 P: 12 [place]: 116 QRS: 59 QRSD: 85 T: 43 QT: 394 QTc: 443 Interpretive Statements SINUS RHYTHM WITH SHORT [place] INTERVAL NONSPECIFIC T-WAVE ABNORMALITY BORDERLINE ECG COMPARED TO ECG 03/31/2022 23:25:59 NO SIGNIFICANT CHANGES Electronically Signed On 05-12-2022 15:51:56 CDT by Endy Jimenez M.D.
[2022-05-11 19:37] LABS: Base Excess ABG -5.6 mmol/L (0-2); HCO3 ABG 19.8 mmol/L (23-29); Oxygen Content ABG 18.8 %vol (16.0-22.0); Oxygen Saturation ABG 94.1 % (95-97); Oxyhemoglobin 92.5 % (94-100); PCO2 ABG 38.7 mmHg (35-45); PO2 ABG 83.3 mmHg (80-90); Total Hemoglobin 14.4 g/dL (12.0-18.0); pH ABG 7.33 (7.35-7.45)
[2022-05-11 19:39] LABS: Basophils Absolute Auto 0.06 K/mm3 (0.00-0.10); Basophils Percent Auto 0.6 % (0.0-1.0); Eosinophils Absolute Auto 0.34 K/mm3 (0.02-0.50); Eosinophils Percent Auto 3.7 % (1.0-6.0); Hematocrit 40.8 % (35.0-49.0); Hemoglobin 13.4 g/dL (12.0-15.0); Immature Granulocyte Absolute 0.02 K/mm3 (0.00-0.00); Immature Granulocyte Percent A 0.2 % (0.0-0.0); Lymphocytes Absolute Auto 2.29 K/mm3 (1.10-4.50); Lymphocytes Percent Auto 24.7 % (18.0-42.0); Mean Corpuscular HGB Conc 32.8 g/dL (32.0-36.0); Mean Corpuscular Hemoglobin 30.2 pg (27.0-31.0); Mean Corpuscular Volume 92.1 fL (78.0-102.0); Mean Platelet Volume 12.4 fl (9.2-11.8); Monocytes Absolute Auto 0.31 K/mm3 (0.10-0.90); Monocytes Percent Auto 3.3 % (2.0-11.0); Neutrophils Absolute Auto 6.3 K/mm3 (1.7-7.2); Neutrophils Percent Auto 67.5 % (50.0-70.0); Platelet Count Result 178 K/mm3 (150-420); Red Blood Count 4.43 M/mm3 (4.20-5.40); Red Cell Distribution Width 13.4 % (11.6-14.4); White Blood Count 9.3 K/mm3 (4.8-10.8)
[2022-05-11] MEDS: DEXTROSE 5%/0.45% SOD CHL 1,000 ML 200 ML IV CONT (19:40)
[2022-05-11 19:43] LABS: Device ROOM AIR; Modified Allen's Test Pass; Site Drawn RIGHT RADIAL
--- NOTE | 2022-05-11 19:50 | PC.NURSE ---
pt straight cathed for urine specimen. pt tolerated well.
[2022-05-11 19:55] LABS: SPREG INTERNAL CONTROL Positive; Serum Qual hCG Negative
--- NOTE | 2022-05-11 20:00 | PC.NURSE ---
abrasion to left brow cleaned. small superficial laceration noted to same. erp applied dermabond. no bleeding noted.
[2022-05-11 20:04] LABS: Lactic Acid Reflex 1.5 mmol/L (0.4-2.0)
[2022-05-11 20:05] LABS: Add Urine Microscopic? NO; Appearance Urine Clear (Clear); Bilirubin Urine Negative (Negative); Blood Urine Negative (Negative); Color Urine Light Yellow (Yellow); Glucose Urine UA Negative (Negative); Ketones Urine Negative (Negative); Leukocyte Esterase Ur Negative (Negative); Nitrate Urine Negative (Negative); Protein Urine Negative (Negative); Specific Grav Ur <= 1.005 (1.010-1.020); Urobilinogen Urine 0.2 mg/dL (0.2-1.0)
[2022-05-11 20:09] LABS: Acetaminophen 2 ug/mL (10-30); Alanine Aminotransferase 19 U/L (14-59); Albumin Level 3.9 g/dL (3.4-5.0); Alkaline Phosphatase 82 U/L (46-116); Anion Gap 15 mmol/L (8-16); Aspartate Amino Transferase 16 U/L (15-37); Bilirubin,Total 0.3 mg/dL (0.00-1.00); Blood Urea Nitrogen 9 mg/dL (7-18); Calcium 8.5 mg/dL (8.5-10.1); Carbon Dioxide 20 mmol/L (21-32); Chloride 115 mmol/L (98-108); Estimated CRCL calculation 71 ml/min; Estimated Glomerular Filt Rate > 60; Glucose 104 mg/dL (70-99); Lipase 102 U/L (73-393); Magnesium 2.5 mg/dL (1.8-2.4); Osmolality Calculated 308 mOsm/kg (285-295); Potassium 2.9 mmol/L (3.5-5.1); Salicylate 3.3 mg/dL (2.8-20.0); Sodium 150 mmol/L (136-145); Total Protein 6.8 g/dL (6.4-8.2)
[2022-05-11 20:11] LABS: Amphetamine Screen Urine Negative (Negative); Barbiturate Screen Urine Negative (Negative); Benzodiazepines Screen Urine Negative (Negative); Cannabinoid Screen Urine Positive (Negative); Cocaine Screen Urine Negative (Negative); Methadone Screen Urine Negative (Negative); Opiate Screen Urine Negative (Negative); Phencyclidine Screen Urine Negative (Negative)
[2022-05-11 20:11] LABS: Ethanol > 300 mg/dL (0-6)
[2022-05-11] MEDS: KCL 20 MEQ/SW 100 ML 100 ML 50 MEQ IVPB (21:17)
[2022-05-11] MEDS: LORazepam INJ (*CRX) 2 MG/ML VIAL IV PUSH (23:55)
--- NOTE | 2022-05-12 01:08 | PC.NURSE ---
0010 patient spitting on staff, pulling IV out. Refusing vital signs screaming I want to go home. Called Monty Roland significant other refused to come get patient. sitter placed with patient [id number] patient dressed, attempting to leave unable to redirect. Police called. 0055 POlice at bed side, sitter cont with patient.
--- NOTE | 2022-05-12 01:39 | PC.NURSE ---
significant other here after police called and spoke to him, patient screaming at him calling him names
--- NOTE | 2022-05-12 01:47 | PC.NURSE ---
significant other left refused to take her home, said do not call him
--- NOTE | 2022-05-12 01:54 | PC.NURSE ---
refused labs & vital signs
--- NOTE | 2022-05-12 02:20 | PC.NURSE ---
called significant other he is willing to try to take her home. discharge papers being processed
[2022-05-12 02:31] VITALS: BP 110/70; PULSE 70; RESP 20; TEMP 36.6; O2SAT 98
== END 2022-05-12 02:32 | disposition home or self-care (01) ==
PROVIDERS: Emergency Provider Internal Medicine Critical Care Medicine
DX: F10.129 Alcohol abuse with intoxication, unspecified (principal); T14.8XXA Other injury of unspecified body region, initial encounter; E87.8 Other disorders of electrolyte and fluid balance, not elsewhere classified; S01.81XA Laceration without foreign body of other part of head, initial encounter
CPT/HCPCS: 12011; 36415; 36600; 70450; 71045; 72125; 72170; 80053; 80307; 81003; 82805; 83605; 83690; 83735; 83930; 84703; 85025; 93005; 96365; 96366; 96372; 96375; 99284; J2060; J3480

== ENCOUNTER 2022-06-14 21:43 | Emergency (ER) | payer OTHER, SELFPAY ==
--- NOTE | ~2022-06-14 | XR_ITS ---
EXAM: XR knee RT 3V DATE: 06/14/2022 22:33 HISTORY: fall. all over pain limited movement . COMPARISON: None available. FINDINGS: Normal mineralization. No fracture or dislocation. No lytic or blastic lesion. Joint space s are maintained. No erosion or periosteal change. Soft tissues within normal limits. IMPRESSION: No acute osseous findings in the right knee. Reviewed, dictated and finalized at location K.
[2022-06-14 22:11] VITALS: BP 137/89; PULSE 95; RESP 18; TEMP 36.9; O2SAT 100
--- NOTE | 2022-06-15 00:20 | PC.NURSE ---
PT didn't want to wait any longer.
== END 2022-06-15 00:20 | disposition left against medical advice (07) ==
PROVIDERS: Emergency Provider Emergency Medicine
DX: M25.561 Pain in right knee (principal)
CPT/HCPCS: 73562; 99199

== ENCOUNTER 2024-05-26 20:53 | Emergency (ER) | payer OTHER, SELFPAY ==
[2024-05-26 20:54] VITALS: BP 136/89; PULSE 102; RESP 22; TEMP 36.1; O2SAT 96
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
[2024-05-26] MEDS: BACITRACIN OINTMENT 15 GM TUBE 1 APPLIC TOPICAL (21:11)
[2024-05-26] MEDS: HYDROcodone/acetaminophen (*CRX) 5-325 MG TABLET 1 TAB PO (21:25)
[2024-05-26] MEDS: AMOXICILLIN/CLAVULANATE K 875-125 MG TAB 1 TABLET PO (21:25)
[2024-05-26 21:54] VITALS: BP 117/91; PULSE 93; RESP 18; O2SAT 97
== END 2024-05-26 21:54 | disposition home or self-care (01) ==
PROVIDERS: Emergency Provider Family Medicine
DX: T23.202A Burn of second degree of left hand, unspecified site, initial encounter (principal); T31.0 Burns involving less than 10% of body surface; F17.210 Nicotine dependence, cigarettes, uncomplicated; X15.0XXA Contact with hot stove (kitchen), initial encounter
CPT/HCPCS: 99283; A9270

== ENCOUNTER 2025-03-27 20:25 | Emergency (ER) | payer OTHER, SELFPAY ==
[2025-03-27 20:28] VITALS: BP 138/85; PULSE 98; RESP 18; TEMP 36.3; O2SAT 100
--- NOTE | 2025-03-27 20:30 | PC.NURSE ---
pt ambulated to bathroom for urine specimen
--- NOTE | 2025-03-27 20:30 | ED.GENADULT ---
HPI - General Adult General Chief complaint: Urogenital-Female Stated complaint: vag burning Time Seen by Provider: 03/27/25 20:29 Source: patient Mode of arrival: ambulatory Limitations: no limitations History of Present Illness HPI narrative: 24 years old status post vaginal delivery 5 days ago at [facility] noticed different smell when she changing pads today and pulling feeling at the vaginal area, Patient report possibly pulling 1 of the sutures out. She denies any fever, chills, nausea, vomiting, unusual or abnormal bleeding. Patient is 5 para 5 and 0 Related Data Allergies Allergy/AdvReac Type Severity Reaction Status Date / Time No Known Allergies Allergy Verified 03/27/25 21:12 Review of Systems Review of Systems: All systems reviewed & are unremarkable except as noted in HPI and below PMFSH Past Medical History Medical History Injury of left lower arm Asthma Upper respiratory infection Pharyngitis Anxiety Family History Family History Mother Anxiety Social History Social History Smoking packs per day: 1 Smoking cigarettes per day: 20.0 Smoking status: Current every day smoker Tobacco type: cigarettes Alcohol intake: current Alcohol use details: Occasional Substance use: never Gender identity (if verbalized by the patient): Female Exam Narrative: General appearance: Well-developed, well-nourished Skin: Normal color Head: Normocephalic, nontraumatic Eyes: Clear conjunctiva Chest and respiratory: Airway patent, no respiratory distress, no accessory muscle use Heart: Regular rate/rhythm Abdomen: Soft, nontender, no organomegaly, quiet bowel sounds Neurologic: Alert and oriented ?3, [employer] is normal as tested, no gross motor deficit : External Female Exam: normal external appearance Speculum Exam - Vagina: normal appearance of the vagina Speculum Exam - Cervix: normal appearance of the cervix Bimanual Exam- Adnexa, other: no masses Other: sutured laceration posterior vaginal entrance, no active bleeding, no discharge Course Vital Signs Vital signs: Vital Signs Temperature 36.3 C L 03/27/25 20:28 Pulse Rate 98 03/27/25 20:28 Respiratory Rate 18 03/27/25 20:28 Blood Pressure 138/85 03/27/25 20:28 Pulse Oximetry 100 03/27/25 20:28 Oxygen Delivery Room Air 03/27/25 20:28 Temperature 36.3 C L 03/27/25 20:28 Pulse Rate 98 03/27/25 20:28 Respiratory Rate 18 03/27/25 20:28 Blood Pressure 138/85 03/27/25 20:28 Pulse Oximetry 100 03/27/25 20:28 Oxygen Delivery Room Air 03/27/25 20:28 Medical Decision Making MDM Narrative Medical decision making narrative: patient is status post vaginal delivery 5 days ago, and vaginal laceration, Vital signs are stable Physical examination is insignificant for serious finding Differential diagnosis include old blood in the vaginal pouch, less likely endometritis ,urinary tract infection DR HADLEY ROBBINS ON-CALL AT [facility] RECOMMENDS TO KEEP HER EYES ON THE SITUATION AND TO CONTACT HIM FOR ANY NEW COMPLAIN. AND OLD SMELLY BLOOD IS A POSSIBILITY AND THE POSSIBILITY OF ENDOMETRITIS IS LESS LIKELY Vital Signs Vital Signs: Vital Signs Temperature 36.3 C L 03/27/25 20:28 Pulse Rate 98 03/27/25 20:28 Respiratory Rate 18 03/27/25 20:28 Blood Pressure 138/85 03/27/25 20:28 Pulse Oximetry 100 03/27/25 20:28 Oxygen Delivery Room Air 03/27/25 20:28 Temperature 36.3 C L 03/27/25 20:28 Pulse Rate 98 03/27/25 20:28 Respiratory Rate 18 03/27/25 20:28 Blood Pressure 138/85 03/27/25 20:28 Pulse Oximetry 100 03/27/25 20:28 Oxygen Delivery Room Air 03/27/25 20:28 Lab Data Labs: Lab Results 03/27/25 Range/Units 21:12 Urine Color Yellow (Yellow) Urine Appearance Turbid A (Clear) Urine pH 5.5 (5.0-8.0) Ur Specific [place] >= 1.030 H (1.010-1.020) Urine Protein 2+ H (Negative) Urine Glucose (UA) Negative (Negative) Urine Ketones 1+ H (Negative) Ur Blood (Man) 3+ H (Negative) Urine Nitrate Negative (Negative) Urine Bilirubin 1+ H (Negative) Urine Urobilinogen 0.2 (0.2-1.0) mg/dL Leukocyte Esterase Rfl Trace H (Negative) CAR[place]YNE/UL Urine RBC 11-20 H (0-2) /hpf Urine WBC 16-20 H (0-3) /hpf Ur Squamous Epith Cells Many H (Few) /hpf Amorphous Sediment Moderate H (None) Urine Bacteria 3+ H (None) /hpf Hyaline Casts 15-19 H (None) /lpf Discharge Plan Discharge Clinical Impression: Encounter for assessment, UTI (urinary tract infection) Patient Disposition: Home Condition: Stable Instructions: Antibiotic Form, Urinary Tract Infection in Women (ED) Additional Instructions: RETURN IF SYMPTOMS ARE WORSENING , CALL YOUR FAMILY PHYSICIAN FOR APPOINTMENT, TAKE TYLENOL NEEDED FOR ACHES AND PAIN, CONTINUE HOME MEDICATIONS. Patient Language: [place]an Prescriptions: New amoxicillin-pot clavulanate [Augmentin] 500-125 mg tablet 1 tablet PO Q8H Qty: 21 0RF No Action DermacinRx Lidogel 2.8 % gel 1 applic topical BID-TID PRN (Reason: pain) Qty: 100 11RF sertraline 100 mg tablet 100 mg PO DAILY Qty: 90 0RF meloxicam 15 mg tablet See Rx Instructions .ROUTE .COMPLEX Qty: 30 0RF Dose Instruction: TAKE 1 TABLET BY MOUTH EVERY DAY Rx Instructions: TAKE 1 TABLET BY MOUTH EVERY DAY amoxicillin-pot clavulanate 875-125 mg tablet 1 tablet PO BID Qty: 20 0RF alprazolam 0.5 mg tablet 0.5 mg PO DAILY PRN (Reason: anxiety) Qty: 20 2RF Follow-up/Referrals: Magnus Newman DO [Primary Care Provider] -
[2025-03-27 21:25] LABS: Add Urine Microscopic? YES; Bilirubin Urine 1+ (Negative); Blood Urine 3+ (Negative); Color Urine Yellow (Yellow); Glucose Urine UA Negative (Negative); Ketones Urine 1+ (Negative); Leukocyte Esterase Ur Trace LEU/UL (Negative); Nitrate Urine Negative (Negative); Protein Urine 2+ (Negative); Specific Grav Ur >= 1.030 (1.010-1.020); Urobilinogen Urine 0.2 mg/dL (0.2-1.0); pH Urine 5.5 (5.0-8.0)
[2025-03-27 21:35] LABS: Amorphous Sediment Urine Moderate; Appearance Urine Turbid (Clear); Squamous Epithelial Cell Urine Many /hpf (Few); WBC Urine 16-20 /hpf (0-3)
[2025-03-27 21:36] LABS: Bacteria Urine 3+ /hpf; Hyaline Casts Urine 15-19 /lpf
[2025-03-27] MEDS: AMOXICILLIN/CLAVULANATE K 500-125 MG TAB 1 TABLET PO (21:50)
[2025-03-27 21:53] VITALS: BP 128/74; PULSE 72; RESP 18; O2SAT 99
== END 2025-03-27 21:53 | disposition home or self-care (01) ==
PROVIDERS: Emergency Provider Emergency Medicine; PCP Family Medicine
DX: O86.20 Urinary tract infection following delivery, unspecified (principal); F17.210 Nicotine dependence, cigarettes, uncomplicated
CPT/HCPCS: 81001; 99283; A9270

== ENCOUNTER 2025-05-24 13:50 | Emergency (ER) | payer OTHER, SELFPAY ==
[2025-05-24 13:50] VITALS: BP 145/87; PULSE 99; RESP 16; TEMP 36.7; O2SAT 99
--- OUTSIDE RECORDS SUMMARY | 2025-05-24 13:52 | XMS_ITS | Clinical Summary ---
Author Organization [facility] Address [address] [place] [id number] Care Team Providers Care [employer] Leader Name Role Phone Conrad Merino Unavailable [phone] No, Physician Primary Care Provider [phone] Allergies No known active allergies Medications metoclopramide (REGLAN) 10 mg tabletIndicatio ns:Acute non intractable tension-type headache,Pregna ncy related nausea, antepartum Take 1 tablet (10 mg total) by mouth every 6 (six) hours PRN nausea and headache. 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 39 weeks gestation of 03/23/2025 Term 03/23/2025 Acute non intractable tension-type headache 04/2 03/2025 related nausea, antepartum 01/31/2025 endometritis 04/22/2021 Folliculitis 10/12/2018 Skin irritation from shaving 10/12/2018 Encounters Date Type Department Care Team Description 03/31/2025 [facility] Post Discharge Follow up phone call [facility] [address] [place] [address] Alexa Mims, RN 03/25/2025 Documentation [facility] [address] [place] [phone] Farrah Parnell 03/25/2025 Documentation [facility] [address] [place] [phone] Farrah Parnell 03/24/2025 Documentation [facility] [address] [place] [phone] Farrah Parnell 03/24/2025 Documentation [facility] [address] [place] [phone] Farrah Parnell 03/23/2025 9:01 AM CDT - 03/25/2025 1:44 PM CDT Hospital Encounter [address] [phone] Dakota Cook MD Encounter for supervision of other normal in third trimester Discharge Disposition: Discharge to home or self care from Last 3 Months Immunizations Immunization Administration Dates Next Due MMR 04/04/2020(Deferred: No longer n eeded) Surgical History Surgery Date Site/Laterality Comments ORIF RADIUS & ULNA FRACTURES 10/08/2016 - 10/07/2017 Lef t Medical History Medical History Date Comments Anxiety Social History Tobacco Use Types Packs/Day Years Used Date Smoking Tobacco: Every Day Cigarettes 0.5 10.6 Started: 2014 Passive Smoke Exposure: Current Smokeless Tobacco: Never Tobacco Cessation:Ready to Q uit: No; Counseling Given: Yes Alcohol Use Standard Drinks/Week Comments Not Currently 0 (1 standard drink = 0.6 oz pur e alcohol) [facility] Utilities Answer Date Recorded In the past 12 months has e [employer], gas, oil, or water [employer] threatened to shut off services in your home? No 03/24/2025 Humiliation, Afraid, Rape, and Kick questionnair e Answer Date Recorded Within the last year, have y ou been afraid of your partner or ex-partner? No 03/24/2025 Within the last year, have y ou been humiliated or emotionally abused in other ways by your partner or ex-partner? No Within the last year, have y ou been kicked, hit, slapped, or otherwise physically hurt by your partner or ex-partner? No 03/24/2025 Within the last year, have y ou been raped or forced to have any kind of sexual activity by your partner or ex-partner? No 03/24/2025 Social Connection and Isolation Panel Answer Date Recorded In a typical week, how many times do you talk on the phone with family, friends, or neighbors? More than three times a week 03/24/2025 How often do you get togethe r with friends or relatives? More than three times a week 03/24/2025 How often do you attend chur or scientology services? Never 03/24/2025 Do you belong to any clubs o r organizations such as roman catholic groups, unions, fraternal or athletic groups, or school groups? No 03/24/2025 How often do you attend meet ings of the clubs or organizations you belong to? Never 03/24/2025 Are you , , di vorced, , never , or living with a partner? Living with partner 03/24/2025 AUDIT-C Answer Date Recorded Q1: How often do you have a drink containing alcohol? Never 03/24/2025 Q2: How many drinks containi ng alcohol do you have on a typical day when you are drinking? Patient does not drink Q3: How often do you have si x or more drinks on one occasion? Never 03/24/2025 Overall Financial Resource Strain (CARDIA) Answe r Date Recorded How hard is it for you to pa y for the very basics like food, housing, medical care, and heating? Not hard at all 03/24/2025 PHQ-2 Answer Date Recorded PHQ-2 Total Score 0 03/24/2025 [facility] - Occupational Stress Questionnaire Answer Date Recorded Do you feel stress - tense, restless, nervous, or anxious, or unable to sleep at night because your mind is troubled all the time - these days? Not at all 03/24/2025 Exercise Vital Sign Answer Date Recorde d On average, how many days pe r week do you engage in moderate to strenuous exercise (like a brisk walk)? 3 days 03/24/2025 On average, how many minutes do you engage in exercise at this level? 30 min 03/24/2025 Hunger Vital Sign Answer Date Recorded Within the past 12 months, y ou worried that your food would run out before you got the money to buy more. Never true 03/24/20 25 Within the past 12 months, t he food you bought just didn't last and you didn't have money to get more. Never true 03/24/2025 PRAPARE - Transportation Answer Date Re corded In the past 12 months, has l ack of transportation kept you from medical appointments or from getting medications? No 03/08 In the past 12 months, has l ack of transportation kept you from meetings, work, or from getting things needed for daily living? No 03/24/2025 [place] Depression Scale Answer Date Recorded [place] Depression Scale Total 0 03/24/2025 The thought of harming myself has occurred to me . Never 03/24/2025 Housing Stability Vital Sign Answer Otilio e Recorded In the last 12 months, was t here a time when you were not able to pay the mortgage or rent on time? No 03/24/2025 In the past 12 months, how m any times have you moved where you were living? 0 03/24/2025 At any time in the past 12 m [facility], were you homeless or living in a skilled nursing (including now)? No 03/24/2025 Personal Safety Answer Date Recorded Have you ever been in or are you currently in a harmful physical or emotional relationship or is someone making you feel afraid or unsafe? Denies 03/23/2025 Comments No Sex and Gender Information Value Date Recorded Sex Assigned at Not on file Legal Sex Female 1:14 PM [employer] Gender Identity Not on file Sexual Orientation Not on file Obstetrics History Para Term AB IAB SAB Ectopic Multiple Livin g Live Births 5 5 4 1 0 5 5 Date Outcome GA Total Labor Labor/2nd/3rd Weight Sex Type Anes PTL Martha A1 A5 Name Clin 2017 34w 0d 2.722 kg (6 lb) M Vag-Sp ont Y Livin g Complications:None 2018 Term 37w 0d 3.629 kg (8 lb) Vag-Sp ont N Livin g Complications:None 2019 Term 38w 5d 5h 59m 5h 50m/0h 04m/0h 05m 3.237 kg (7 lb 2.2 oz) M Vag-Sp ont None N Livin g 9 9 SHEN GONZALEZ Pa Madden MD Complications:None Delivery [facility] 2020 Term 39w 0d 1h 21m 1h 10m/0h 06m/0h 05m 3.708 kg (8 lb 2.8 oz) F Vag-Sp ont None N Livin g 9 9 NEYMAR GRETTANANCIE MAYER MONICA tovar, Pa dias MD Complications:Precipitous La bor (<3 hours) Delivery [facility]) 2024 Term 39w 6d 0h 34m 0h 23m/0h 04m/0h 07m 3.69 kg (8 lb 2.2 oz) F Vagina l Local N Livin g 9 9 Rubina Pa Zavala MD Complications:None Delivery [facility]) Summary Episode Dates Number of Fetuses Estimated Date of Delivery 02/12/2025 - Present (05/24/2025) 1 03/24/2025 (set by Ni Ceja, NADEEN on 03/23/2025 based on Patient Reported) Dating Summary Based On ELISA GA Diff Patient Reported 03/24/2025 Working Alternate ELISA Entry 04/23/2025 -4w2d Comment:Date entered prior t o episode creation Vitals Date GA Fund Present FHR Mvmt BP Weight Edema Alb Glu Ket Dil/ Eff/Sta 5 34w2d Inpatient data not displayed here. See encounter summary. 5 39w6d Inpatient data not displayed here. See encounter summary. Notes Progress Notes - Hospital En counter - 03/25/2025 - GA:39w6d 03/24/2025 - 39w6d - Dakota Cook MD Post day # 1 Status post S: feeling Ok, pain control adequate, good progress Bonding well with baby O: afebrile, Vitals stable, lochia appropriate Chest: good air movement Cv: RRR Abd: soft, NT, fundus firm Ext: (-) A/P Doing well, no big issues Plan discharge tomorrow 03/24/2025 - 39w6d - Diana Baum DO [facility] Progress Note day 1 Subjective Monica Peguero is a 24 y.o. status post Vaginal delivery at 39w6d on 03/23/2025. Labor/Delivery Complications: PPH QBL> 1L Indications for Induction: Elective Labor: No Forcep Assisted Delivery: No Vacuum Assisted Delivery: No Shoulder Dystocia Present: 0 Lacerations noted: Perineal degree: 1 Pain: Controlled Bleeding: lochia minimal PO's: taking regular diet Voiding: without difficulty Passing Flatus/bowel movement: flatus Ambulating: yes Mood: stable Feeding: bottlefeeding Interval History: No significant concerns today Objective Vitals [min-max] most recent: Temp: [36.7 C (98.1 F)-37.7 C (99.8 F)] 36.7 C (98.1 F) Pulse: [69-117] 92 BP: (111-133)/(61-88) 120/61 Resp: [16] 16 SpO2: [92 %-100 %] 98 % I/O last 2 completed shifts: In: 1122.3 [I.V.:1122.3] Out: 1001 [Blood:1001] Physical Exam General: well Cardiovascular: regular rate and rhythm, S1, S2 normal, no murmur, click, rub or gallop Lungs: clear to auscultation bilaterally Abdomen: non-tender and soft Fundus: firm, below umbilicus, and nontender Incision: not applicable, (vaginal delivery) Vulvar/Perineum: deferred Extremities: symmetric and no edema Data: Laboratory review: Lab results in the last 12 hours: No results found for this or any previous visit (from the past 12 hours). Current Facility-Administered Medications Medication Dose Route Frequency Provider Last Rate Last Admin acetaminophen (TYLENOL) tablet 650 mg 650 mg oral Q6H PRN Dakota Cook MD 650 mg at 03/23/251956 benzocaine-menthoL (DERMOPLAST) 20-0.5 % topical spray 1 spray 1 spray topical PRN Dakota Cook MD 1 spray at 03/23/25 180 calcium carbonate (TUMS) chewable tablet 500 mg 500 mg oral QID PRN Dakota Cook MD docusate sodium (COLACE) capsule 100 mg 100 mg oral BID Dakota Cook MD 100 mg at 03/24/25 0741 ibuprofen (ADVIL,MOTRIN) tablet 600 mg 600 mg oral Q6H PRN Dakota Cook MD 600 mg at 03/24/25 0740 ibuprofen (ADVIL,MOTRIN) tablet 600 mg 600 mg oral Q6H DIAMANTE Dakota Cook MD gxhbxzl-etbuz-qaqqnyb (MMR) 1,000-12,500 TCID50/0.5 mL live vaccine 0.5 mL 0.5 mL subcutaneous During hospitalization Dakota Cook MD ondansetron ODT (ZOFRAN-ODT) disintegrating tablet 4 mg 4 mg oral Q6H PRN Dakota Cook MD Or ondansetron (ZOFRAN) injection 4 mg 4 mg intravenous Q6H PRN Dakota Cook MD polyethylene glycol (MIRALAX) packet 17 g 17 g oral Daily Dakota Cook MD 17 g at 03/24/25 0742 vit-iron fum-folic ac tablet 1 tablet 1 tablet oral Daily Dakota Cook MD 1 tablet at 03/24/25 0740 varicella zoster (VARIVAX) vaccine - live 0.5 mL 0.5 mL subcutaneous During hospitalization Dakota Cook MD Status Information for the patient's : He Pegureo [[id number]] [id number] Assessment/Plan Principal Problem: 39 weeks gestation of Active Problems: Term Secondary hemorrhage Resolved Problems: No resolved hospital problems. Monica Peguero is a 24 y.o. status post Vaginal delivery of AGA female infant at 39w6d on 03/23/2025. #Routine Care - Hemodynamics: awaiting CBC - QBL: 1001 ml - PreHgb: 12.2 g/dL, PostHgb: awaiting g/dL, Treatment: awaiting - Pain: controlled - GI/: voiding spontaneously without difficulty - Method of Feeding: plans to bottle feed - Mood:stable, bonding with baby - Assisted Delivery: Forcep Assisted Delivery: No Vacuum Assisted Delivery:No - Delivery Complications with Risks for Future Pregnancies: None - Method of Contraception: DepoProvera and eventually tubal ligation - Immunizations: There is no immunization history for the selected administration types on file for this patient. - Rh status: Rh + - Feeding: bottlefeeding - Continue routine post care, encourage ambulation - Disposition: Anticipate DC home on day 2 #PPH - uterine atony requiring methergine - follow CBC and 24 hr QBL Diana Baum DO Family Medicine PGY-3 [facility] Residency Cosigned by Dakota Cook MD at 03/31/2025 2:13 PM CDT Last Filed Vital Signs Vital Sign Reading Time Taken Comments Blood Pressure 124/78 03/25/2025 8:00 AM CDT Pulse 89 03/25/2025 8:00 AM CDT Temperature 36.9 C (98.5 F) 03/25/2025 8:00 AM CDT Respiratory Rate 16 03/24/2025 4:40 PM CDT Oxygen Saturation 98% 03/23/2025 6:05 PM CDT Inhaled Oxygen Concentration - - Weight 72.6 kg (160 lb) 01/31/2025 3:47 PM CDT Height 165.1 cm (5' 5) 01/31/2025 3:47 PM CDT Body Mass Index 26.63 01/31/2025 3:47 PM CDT Plan of Treatment Health Maintenance Due Date Last Done Comments Cervical Cancer Screening 1999 Hepatitis C Screening 1999 Pneumococcal vaccine <65 (1 of 1 - PPSV23, PCV20, or PCV21) 2005 06/05/2001, 03/08/2001 Regular Well Visit/Exam 18-64 2017 Influenza Vaccine (#1) 2025 4, 01/06/2014, 06/21/2012, Additional history exists Depression Screening 03/24/2026 03/24/2025, 02/12/2025, 02/12/2025 DTaP/Tdap/Td Vaccine (9 - Td or Tdap) 03/12/2029 03/12/2019, 05/31/2018, 03/15/2011, Additional history exists Hepatitis B Screening Completed 05/10/2000 , 1999, 1999 Varicella Vaccines Completed 10/30/2008, 03/08/2001 HPV Vaccines Completed 06/21/2012, 12/07, 03/15/2011 Procedures Procedure Name Priority Date/Time Associated Diagnosis Comments CBC WITHOUT DIFFERENTIAL Routine 03/24/2025 7:24 AM CDT ANTIBODY SCREEN STAT 03/23/2025 1:29 PM CDT ABO/RH STAT 03/23/2025 1:29 PM CDT TYPE AND SCREEN STAT 03/23/2025 1:29 PM CDT DIFFERENTIAL AUTO STAT 03/23/2025 9:3 0 AM CDT DRUGS OF ABUSE SCREEN, URINE WITH REFLEX CONFIRMATION Routine 03/23/2025 9:30 AM CDT CBC WITH AUTO DIFFERENTIAL STAT 03/23/2025 9:30 AM CDT URINALYSIS AND REFLEX TO MICROSCOPIC AND CULTURE Routine 03/23/2025 9:30 AM CDT RPR Routine 03/23/2025 9:30 AM CDT from Last 3 Months Results * (ABNORMAL) CBC without differential (03/24/2025 7:24 AM CDT) WBC 16.64(H) 3.80 - 9.90 K/cumm Hgb 8.3(L) 11.9 - 15.5 g/dL [facility] ([place]) Comment:This result has been called to Kalpana sommer by [id number] on 03/24/2025 08:18:13. Hct 25.0(L) 35.6 - 45.5 % [facility] ([place]) Plt 135(L) 150 - 400 K/cumm [facility]) MPV 12.5(H) 9.1 - 12.3 fL [facility]) RBC 2.78(L) 3.90 - 5.20 M/cumm [facility] ([place]) MCV 89.9 81.3 - 96.4 fL [facility]) MCH 29.9 27.1 - 33.3 pg [facility]) MCHC 33.2 32.3 - 35.7 g/dL [facility]) RDW CV 12.5 11.1 - 14.9 % [facility]) RDW SD 41.1 35.7 - 48.1 fL [facility]) NRBC abs 0.00 0.00 - 0.01 K/cumm [facility] ([place]) Blood 03/24/2025 7:24 AM CDT 03/24/2025 7:36 AM CDT us Dakota Cook MD LAB BLOOD ORDERABLES F inal Result [facility] ([place] 1 [facility] Department [place] [address] * ABO/Rh (03/23/2025 1:29 PM CDT) ABO/Rh B Positive Blood 03/23/2025 1:29 PM CDT 03/23/2025 1:38 PM CDT Narrative [facility] ([place]) - 03/23/2025 2:22 PM CDT Has the patient had Daratumumab or Isatuximab in the past 6 months?->Unknown Dakota Cook MD LAB BLOOD BANK TEST OR DERABLES Final Result [facility] ([place] [address] [place] [address] * Antibody screen (03/23/2025 1:29 PM CDT) Cathi, indirect, Gel Interpretation Negative ABSC Blood 03/23/2025 1:29 PM CDT 03/23/2025 1:38 PM CDT Narrative [facility] - 03/23/2025 2:22 PM CDT Has the patient had Daratumumab or Isatuximab in the past 6 months?->Unknown Dakota Cook MD LAB BLOOD BANK TEST OR DERABLES Final Result Performing Organization Address [facility] Co de Phone Number [facility] 1 [facility] [place] [address] * Drugs of Abuse Screen, Urine with Reflex Confirmation (03/23/2025 9:30 AM CDT) Amphetamine, ur Not Detected [facility] 500ng/mL Comment: Interpretive Data - Amphetamines: Samples containing greater than 500 ng/mL d-methamphetamine or other cross-reacting amphetamine compounds are reported as positive. Amphetamine immunoassays are subject to significant false positive rates due to cross-reactivity of non-amphetamine drugs. Confirmatory testing required for definitive results. Current Interpretive Data was last reviewed 2023. Barbiturates, ur Not Detected CutOff 200ng/mL [facility] ([place] Comment: Interpretive Data - Barbiturates: Samples containing greater than 200 ng/mL secobarbital or other cross-reacting barbiturate compounds are reported as positive. False positive and false negative results are possible. Confirmatory testing required for definitive results. Current Interpretive Data was last reviewed 2023. Benzodiazepines, ur Not Detected CutOff 100ng/mL [facility] ([place]) Comment: Interpretive Data - Benzodiazepines: Samples containing greater than 100 ng/mL nordiazepam or other cross-reacting compounds are reported as positive. False positive and false negative results are possible. Confirmatory testing required for definitive results. Current Interpretive Data was last reviewed 2023. Cannabinoids, ur Not Detected CutOff 50 ng/mL [facility]) Comment: Interpretive Data - Cannabinoids: Samples containing greater than 50 ng/mL delta-9 THC -COOH or other cross- reacting compounds are reported as positive. False positive and false negative results are possible. Confirmatory testing required for definitive results. Current Interpretive Data was last reviewed 2023. Cocaine, ur Not Detected CutOff 150ng/mL [facility] ([place]) Comment: Interpretive Data - Cocaine: Samples containing greater than 150 ng/mL benzoylecgonine or other cross- reacting compounds are reported as positive. False positive and false negative results are possible. Confirmatory testing required for definitive results. Current Interpretive Data was last reviewed 2023. Fentanyl, Ur Not Detected CutOff 5 ng/mL [facility] ([place]) Comment: Interpretive Data - Fentanyl: Samples containing greater than 5 ng/mL norfentanyl, fentanyl, or other cross-reacting fentanyl compounds are reported as positive. False positive and false negative results are possible. Confirmatory testing required for definitive results. Current Interpretive Data was last reviewed 2023. Methadone, ur Not Detected CutOff 300ng/mL [facility] ([place]) Comment: Interpretive Data - Methadone: Samples containing greater than 300 ng/mL d,l-methadone or other cross-reacting compounds are reported as positive. False positive and false negative results are possible. Confirmatory testing required for definitive results. Current Interpretive Data was last reviewed 2023. Opiates, ur Not Detected CutOff 300ng/mL [facility] ([place]) Comment: Interpretive Data - Opiates: Samples containing greater than 300 ng/mL morphine or other cross-reacting compounds are reported as positive. False positive and false negative results are possible. Confirmatory testing required for definitive results. Current Interpretive Data was last reviewed 2023. Oxycodone, ur Not Detected CutOff 100ng/mL [facility] ([place]) Comment: Interpretive Data - Oxycodone: Samples containing greater than 100 ng/mL oxycodone or other cross-reacting compounds are reported as positive. False positive and false negative results are possible. Confirmatory testing required for definitive results. Current Interpretive Data was last reviewed 2023. Phencyclidine, ur Not Detected CutOff 25 ng/mL [facility] ([place]) Comment: Interpretive Data - Phencyclidine: Samples containing greater than 25 ng/mL phencyclidine or other cross-reacting compounds are reported as positive. False positive and false negative results are possible. Confirmatory testing required for definitive results. Current Interpretive Data was last reviewed 2023. Urine Creatinine 27 mg/dL [facility] ([place]) Comment: Interpretive Data Urine Creatinine: < 10 mg/dL is extremely dilute = or > 10 but < 20 mg/dL is dilute = or > 20 mg/dL is normal Current Interpretive Data was last revised on 2017. Urine 03/23/2025 9:30 AM CDT 03/23/2025 10:23 AM CDT Narrative [facility] ([place]) - 03/23/2025 11:05 AM CDT Drug of Abuse screening is performed by immunoassay for medical purposes only. This is not to be used for Pain Management purposes. If Detected, confirmation testing will be performed for Amphetamines, Cocaine, Fentanyl, Methadone, Opiates, Oxycodone or Phencyclidine. Dakota Cook MD LAB URINE ORDERABLES F inal Result [facility] ([place] 1 [facility] Department [place] [address] * (ABNORMAL) Differential, auto (03/23/2025 9:30 AM CDT) Neutrophil abs 10.74(H) 1.50 - 6.50 K/cumm Imm gran abs 0.15(H) 0.00 - 0.10 K/cumm [facility] ([place]) Lymphocyte abs 2.33 0.80 - 3.30 K/cumm [facility] ([place]) Monocyte abs 0.88(H) 0.20 - 0.80 K/cumm [facility] ([place]) Eosinophil abs 0.20 0.00 - 0.50 K/cumm [facility] ([place]) Basophil abs 0.08 0.00 - 0.10 K/cumm [facility] ([place]) Neutrophil pct 74.7 % [facility] ([place]) Comment: Interpretive Data Percent cell count reference ranges are not reported, since discordance with absolute values may lead to misinterpretation of CBC data. Current Interpretive Data was last revised on 2018. Imm gran pct 1.0 % [facility] ([place]) Comment: Interpretive Data Percent cell count reference ranges are not reported, since discordance with absolute values may lead to misinterpretation of CBC data. Current Interpretive Data was last revised on 2018. Lymphocyte pct 16.2 % [facility] ([place]) Comment: Interpretive Data Percent cell count reference ranges are not reported, since discordance with absolute values may lead to misinterpretation of CBC data. Current Interpretive Data was last revised on 2018. Monocyte pct 6.1 % [facility] ([place]) Comment: Interpretive Data Percent cell count reference ranges are not reported, since discordance with absolute values may lead to misinterpretation of CBC data. Current Interpretive Data was last revised on 2018. Eosinophil pct 1.4 % [facility] ([place]) Comment: Interpretive Data Percent cell count reference ranges are not reported, since discordance with absolute values may lead to misinterpretation of CBC data. Current Interpretive Data was last revised on 2018. Basophil pct 0.6 % [facility] ([place]) Comment: Interpretive Data Percent cell count reference ranges are not reported, since discordance with absolute values may lead to misinterpretation of CBC data. Current Interpretive Data was last revised on 2018. Blood 03/23/2025 9:30 AM CDT 03/23/2025 12:42 PM CDT us Dakota Cook MD LAB BLOOD ORDERABLES F inal Result [facility] ([place] 1 [facility] Department [place] [address] * Urinalysis reflex to microscopic and culture Urine, clean voided (03/23/2025 9:30 AM CDT) Color, ur Straw Yellow Clarity, ur Clear Clear [facility] ([place]) Specific gravity, ur 1.006 1.003 - 1.030 [facility]) pH, urine 7.5 [facility]) Comment: Interpretive Data U rine pH is affected by diet, medications, systemic acid-base disturbances, and renal tubular function. pH may affect urinary stone formation. For example, urine pH below 6.0 may help reduce the tendency for calcium phosphate stones and pH greater than 6.0 may reduce the tendency for uric acid stone formation. Source: [facility] Current Interpretive Data was last revised on 2017 Protein, ur ql Negative Negative [facility]) Glucose, ur ql Negative Negative [facility]) Ketones, ur Negative Negative [facility]) Bilirubin, ur Negative Negative [facility] ([place]) Blood, ur Negative Negative [facility]) Urobilinogen, ur <2.0 <2.0 mg/dL [facility] Nitrite, ur Negative Negative [facility] ([place]) Leukocyte esterase, ur Negative Negative [facility]) UA reflex comment Reflex conditions for microscopic UA and culture not met. [facility] Urine, clean voided 03/23/2025 9:30 AM CDT 03/23/2025 10:23 AM CDT us Dakota Cook MD LAB MICROBIOLOGY - GEN ERAL ORDERABLES Final Result [facility] 1 [facility] Department [place] [address] * (ABNORMAL) CBC with auto differential (03/23/2025 9:30 AM CDT) WBC 14.38(H) 3.80 - 9.90 K/cumm Hgb 12.2 11.9 - 15.5 g/dL [facility] ([place]) Hct 36.5 35.6 - 45.5 % [facility]) Plt 163 150 - 400 K/cumm [facility] ([place]) MPV 13.3(H) 9.1 - 12.3 fL [facility]) RBC 4.04 3.90 - 5.20 M/cumm [facility]) MCV 90.3 81.3 - 96.4 fL [facility] MCH 30.2 27.1 - 33.3 pg [facility]) MCHC 33.4 32.3 - 35.7 g/dL [facility]) RDW CV 12.6 11.1 - 14.9 % [facility] RDW SD 41.4 35.7 - 48.1 fL [facility]) NRBC abs 0.00 0.00 - 0.01 K/cumm [facility]) Blood 03/23/2025 9:30 AM CDT 03/23/2025 12:42 PM CDT Dakota Cook MD LAB BLOOD ORDERABLES F inal Result [facility] ([place]) 1 [facility] [place] [address] * RPR Blood (03/23/2025 9:30 AM CDT) RPR Nonreactive Nonreactive Comment:Testing performed by : [facility], [address] [place] [address], [id number] Blood 03/23/2025 9:30 AM CDT 03/23/2025 5:15 PM CDT Dakota Cook MD LAB MICROBIOLOGY - GEN ERAL ORDERABLES Final Result [facility] ([place]) 1 [facility] [place] [address] from Last [address] [place] [address] [facility] Advance Directives For more information, please contact: [phone] * Full Code (Latest Code Status on File) Date Activated Date Inactivated Comments 03/23/2025 5:05 PM 03/25/2025 5:50 PM * Full Code Date Activated Date Inactivated Comments 03/23/2025 10:36 AM 03/23/2025 5:05 PM Full CPR in case of cardiopulmonary arrest * Full Code Date Activated Date Inactivated Comments 03/23/2025 10:05 AM 03/23/2025 10:36 AM Full CPR i n case of cardiopulmonary arrest * Full Code Date Activated Date Inactivated Comments 04/22/2021 10:02 PM 04/23/2021 5:38 PM * Full Code Date Activated Date Inactivated Comments 04/19/2021 9:28 AM 04/21/2021 4:38 PM Care Teams Lean Manufacturing Leader Relationship Specialty Start Date End Date No, Physician PCP - General 01/31/25 Conrad Merino PA [address] [place] [address] 07/03/17
--- OUTSIDE RECORDS SUMMARY | 2025-05-24 13:52 | XMS_ITS | Clinical Summary ---
Author Organization [facility] Address [address] [place] [address] Phone Care Team Providers Care Payment Specialist Name Role Phone Provider, None Primary Care Provider Unavailabl e Allergies Active Allergy Reactions Criticality Noted Date Comments Ibuprofen Swelling 07/30/2019 Medications clonazePAM (KLONOPIN) 1 MG Tablet Take 1 mg by mouth 2 times daily. Active clonazePAM (KLONOPIN) 1 MG Tablet Take 1 Tab by mouth 2 times daily. 30 Tab 0 Active Lidocaine 2 % Gel 2 mL by Apply externally route every 2 hours as needed for Other (Dental pain). Apply with a cotton-tipped applicator to the area of pain 1 Tube 0 Active Additional Information Patient not taking.Reported on 09/11/2020 hydrOXYzine (VISTARIL) 25 MG Capsule Take 1 Cap by mouth 3 times daily as needed for Anxiety. 30 Cap 0 Active Additional Information Patient not taking.Reported on 09/11/2020 busPIRone (BUSPAR) 5 MG Tablet Take 1 Tab by mouth 3 times daily. 15 Tab 0 Active clonazePAM (KlonoPIN) 0.5 MG Tablet Take 1 Tablet by mouth daily as needed for Anxiety. 10 Tablet 1 Active HYDROcodone-nitin taminophen (NORCO) 5-325 MG TabletIndicatio ns:Pain, dental Take 1 Tablet by mouth every 8 hours as needed for Severe pain. 12 Tablet 4 Active Immunizations Immunization Administration Dates Next Due TDAP Vaccine 12/02/2021(Deferred: - Pt states that she had a tetanus vaccine last week and refused today) Social History Tobacco Use Types Packs/Day Years Used Date Smoking Tobacco: Every Day Cigarettes Smokeless Tobacco: Never Alcohol Use Standard Drinks/Week Comments Not Currently 0 (1 standard drink = 0.6 oz pur e alcohol) Comments No Sex and Gender Information Value Date Recorded Sex Assigned at Not on file Legal Sex Female 7:31 PM CDT Gender Identity Not on file Sexual Orientation Not on file Last Filed Vital Signs Vital Sign Reading Time Taken Comments Blood Pressure 128/88 07/06/2024 11:37 AM CDT Pulse 80 07/06/2024 11:37 AM CDT Temperature 36.4 C (97.6 F) 07/06/2024 11:37 AM CDT Respiratory Rate 14 07/06/2024 11:3 7 AM CDT Oxygen Saturation 100% 07/06/2024 11: 37 AM CDT Inhaled Oxygen Concentration - - Weight 62.1 kg (136 lb 15.2 oz) 024 11:16 AM CDT Height 167.6 cm (5' 6) 07/06/2024 11:1 6 AM CDT Body Mass Index 22.1 07/06/2024 11:16 AM CDT Plan of Treatment Health Maintenance Due Date Last Done Comments Hepatitis C Virus (HCV) Screening 1999 Pneumococcal Immunization Combined (1 of 2 - PCV) 2018 06/05/2001, 03/08/2001 Pap Smear 2020 SARS-COV-2 Immunization ( - season) 2024 Influenza Immunization (#1) 2025 10/0 10/2013, 01/06/2014, 01/13/2010 Respiratory Syncytial Virus (RSV) Immunization (Adult) (1 - 1-dose 75+ series) 2074 Hepatitis B Immunization Completed 000, 1999, 1999 Meningococcal Immunization (ACWY) Aged Out 03/15/2011 No longer eligible based on patient's age to complete this topic Human Papillomavirus (HPV) Immunization Completed 06/21/2012, 12/28/2011, 03/15/2011 DTaP/Tdap/Td Immunization Discontinued 2020, 03/12/2019, 05/31/2018, Additional history exists TdaP Immunization Completed 03/17/2021, , 05/31/2018, Additional history exists Rotavirus Immunization Aged Out No lo nger eligible based on patient's age to complete this topic Insurance MEDICAID [facility] PLAN ATTN CLAIMS [facility] [id number] [facility] [place] [address] Care Teams Payment Specialist Relationship Specialty Start Date End Date Provider, None [place] PCP - General 09/11/20
--- NOTE | 2025-05-24 13:58 | ED_ITS ---
HPI - General Adult General Chief complaint: Unspecified Stated complaint: hemorrhoid Time Seen by Provider: 05/24/25 13:51 History of Present Illness HPI narrative: Monica is a 24F with a PMH of anxiety, poor dentition, and asthma that presented to the ED with a hemorrhoid that she noticed yesterday morning and has become more painful. No rectal bleeding or melena. She did deliver a baby about 2 months ago. Related Data Allergies Allergy/AdvReac Type Severity Reaction Status Date / Time No Known Allergies Allergy Verified 05/24/25 14:03 Review of Systems Review of Systems: All systems reviewed & are unremarkable except as noted in HPI and below PMFSH Past Medical History Medical History Injury of left lower arm Asthma Upper respiratory infection Pharyngitis Anxiety Family History Family History Mother Anxiety Social History Social History Smoking packs per day: 1 Smoking cigarettes per day: 20.0 Smoking status: Current every day smoker Tobacco type: cigarettes Alcohol intake: current Alcohol use details: Occasional Substance use: never Do You Feel Safe in your Home?: Yes Lack of Transportation: No Lack of Food: Never True Current Housing: I Have Housing Concerned About Future Housing: No Difficulty Paying Gas/Electric Bills: No Difficulty Paying for Meds: No Currently Unemployed: No Difficulty w/ Childcare or Family Care: No Living arrangements: with family Gender identity (if verbalized by the patient): Female Exam Const: General: cooperative, healthy appearing, comfortable, no acute distress, well developed, alert, awake and Physically active Orientation/co nsciousness: oriented to person, oriented to place and oriented to time HENMT: Head: normal to inspection, normocephalic and atraumatic Ears: hearing grossly normal bilaterally and external ears normal Face/Nose/Sinus: Normal external nose present Eyes: General: appearance normal, both eyes and all related structures Periorbital: periorbital findings normal Sclera: sclerae normal Pupils: Equal, round and reactive pupils present Neck: Neck: normal visual inspection Chest: Chest palpation & inspection: normal inspection of the chest Resp: Effort & Inspection: normal respiratory effort, able to speak in complete sentences and no respiratory distress Cardio: Jugular venous distension: no JVD GI: Inspection: normal to inspection GI Palp: Yes Soft to palpation Auscultation: normal bowel sounds Other: small, <1cm, external hemorrhoid observed Skin: General skin exam: normal color and no rashes or lesions noted Neuro: General: oriented to person, oriented to place and oriented to time Cranial nerves: Yes Equal, round and reactive pupils present Extrem: General: normal to inspection Course Course Emergency Course: applied preparation H Vital Signs Vital signs: Vital Signs Temperature 98.1 F 05/24/25 13:50 Pulse Rate 99 05/24/25 13:50 Respiratory Rate 16 05/24/25 13:50 Blood Pressure 145/87 H 05/24/25 13:50 Pulse Oximetry 99 05/24/25 13:50 Oxygen Delivery Room Air 05/24/25 13:50 Temperature 98.1 F 05/24/25 13:50 Pulse Rate 99 05/24/25 13:50 Respiratory Rate 16 05/24/25 13:50 Blood Pressure 145/87 H 05/24/25 13:50 Pulse Oximetry 99 05/24/25 13:50 Oxygen Delivery Room Air 05/24/25 13:50 Medical Decision Making Vital Signs Vital Signs: Vital Signs Temperature 98.1 F 05/24/25 13:50 Pulse Rate 99 05/24/25 13:50 Respiratory Rate 16 05/24/25 13:50 Blood Pressure 145/87 H 05/24/25 13:50 Pulse Oximetry 99 05/24/25 13:50 Oxygen Delivery Room Air 05/24/25 13:50 Temperature 98.1 F 05/24/25 13:50 Pulse Rate 99 05/24/25 13:50 Respiratory Rate 16 05/24/25 13:50 Blood Pressure 145/87 H 05/24/25 13:50 Pulse Oximetry 99 05/24/25 13:50 Oxygen Delivery Room Air 05/24/25 13:50 Discharge Plan Discharge Clinical Impression: External hemorrhoid Patient Disposition: Home Condition: Stable Instructions: Hemorrhoids (ED) Patient Language: Peruvian Prescriptions: New hydrocortisone 2.5 % cream with perineal applicator 1 applic RECTAL DAILY PRN (Reason: hemorrhoids) Qty: 30 0RF Preparation H Rapid Rlf-Lidocn 5-0.25-14.4-15 % cream 1 applic topical TID Qty: 28 0RF No Action sertraline 50 mg tablet 50 mg PO DAILY Qty: 90 0RF alprazolam 0.5 mg tablet 0.5 mg PO DAILY PRN (Reason: anxiety) Qty: 20 0RF Follow-up/Referrals: Magnus Newman DO [Primary Care Provider] -
[2025-05-24] MEDS: PHENYLEPH/SHARK OIL/MO/PETROL CREAM 26 GM 1 APPLIC RECTAL (14:21)
--- OUTSIDE RECORDS SUMMARY | 2025-05-24 14:24 | XMS_ITS | Clinical Summary ---
Author Organization [facility] Address [address] [place] [address] Phone Care Team Providers Care Printing Grey Cloth Tender Name Role Phone Provider, None Primary Care [...] age to complete this topic Insurance MEDICAID [facility] PLAN ATTN CLAIMS [facility] [id number] [facility] [address] Care Teams Printing Grey Cloth Tender Relationship Specialty Start Date End Date Provider, None [place] PCP - General 09/11/20
--- OUTSIDE RECORDS SUMMARY | 2025-05-24 14:24 | XMS_ITS | Clinical Summary ---
Author Organization [facility] Address [address] [place] [phone] Care Team Providers Care Hot Dipper Name Role Phone Conrad Merino Unavailable [phone] No, Physician Primary Care Provider [phone] Allergies No known active allergies Medications metoclopramide [...] Date Type Department Care Team Description 03/31/2025 [facility] Post Discharge Follow up phone call [facility] [address] [place] [address] Alexa Mims, RN 03/25/2025 Documentation [facility] Warm Hand Off Program [address] [place] [phone] Farrah Parnell 03/25/2025 Documentation [facility] [address] [place] [phone] Farrah Parnell 03/24/2025 Documentation [facility] [address] [place] [phone] Farrah Parnell 03/24/2025 Documentation [facility] Off Program [address] [place] [phone] Farrah Parnell 03/23/2025 9:01 AM CDT - 03/25/2025 1:44 PM CDT Hospital Encounter [address] [phone] Dakota Cook MD Encounter for supervision of [...] drink = 0.6 oz pur e alcohol) [facility] Utilities Answer Date Recorded In the past 12 months has e [employer], gas, oil, or water [employer] threatened to shut off services in your [...] How often do you attend chur or catholic services? Never 03/24/2025 Do you belong to any clubs o r organizations such as advent groups, unions, fraternal or athletic groups, or [...] Date Recorded PHQ-2 Total Score 0 03/24/2025 [facility] [place] of Occupat ional Health - Occupational Stress [...] things needed for daily living? No 03/24/2025 [place] Depression Scale Answer Date Recorded [place] Depression Scale Total 0 03/24/2025 The thought [...] any time in the past 12 m [facility], were you homeless or living in a residential (including now)? No 03/24/2025 Personal Safety Answer Date Recorded Have you ever been in or are you currently in a harmful physical or emotional relationship or is someone making you feel afraid or unsafe? 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 Gender Identity Not on file Sexual Orientation [...] Local N Livin g 9 9 Rubina aP Zavala MD Complications:None Delivery Location:This Facil ity [...] 03/24/2025 - 39w6d - Diana Baum DO [facility] Obstetrics Progress Note day 1 Subjective Monica [...] mg 650 mg oral Q6H PRN Dakota Coko MD 650 mg at 03/23/251956 benzocaine-menthoL (DERMOPLAST) [...] mg oral Q6H DIAMANTE Dakota Cook MD sxvpzdb-xskft-vnxbthm (MMR) 1,000-12,500 TCID50/0.5 mL live vaccine 0.5 [...] Status Information for the patient's : He Peguero [[id number]] [id number] Assessment/Plan Principal Problem: 39 weeks gestation of [...] QBL Diana Baum DO Family Medicine PGY-3 [facility] Family Medicine Residency Cosigned by Dakota [...] has been called to Kalpana sommer by [id number] on 03/24/2025 08:18:13. Hct 25.0(L) 35.6 - [...] F inal Result [facility] 1 [facility] [place] [address] * ABO/Rh (03/23/2025 1:29 PM CDT) ABO/Rh B Positive Blood 03/23/2025 1:29 PM CDT 03/23/2025 1:38 PM CDT Narrative [facility] ([place]) - 03/23/2025 2:22 PM CDT Has the patient had Daratumumab or Isatuximab in the past 6 months?->Unknown Dakota Cook MD LAB BLOOD BANK TEST OR DERABLES Final Result [facility] ([place]) 1 [place] [address] * Antibody screen (03/23/2025 1:29 PM CDT) Cathi, indirect, Gel Interpretation Negative ABSC Blood 03/23/2025 1:29 PM CDT 03/23/2025 1:38 PM CDT Narrative [facility] ([place]) - 03/23/2025 2:22 PM CDT Has the patient had Daratumumab or Isatuximab in the past 6 months?->Unknown Dakota Cook MD LAB BLOOD BANK TEST OR DERABLES Final Result Performing Organization Address [facility] Co de Phone Number [facility] ([place]) 1 [facility] [place] [address] * Drugs of Abuse Screen, Urine with [...] Barbiturates, ur Not Detected CutOff 200ng/mL [facility] ([place]) Comment: Interpretive Data - Barbiturates: Samples containing greater than 200 ng/mL secobarbital or other cross-reacting barbiturate compounds are reported as positive. False positive and false negative results are possible. Confirmatory testing required for definitive results. Current Interpretive Data was last reviewed 2023. Benzodiazepines, ur Not Detected CutOff 100ng/mL [facility] ([place]) Comment: Interpretive Data - Benzodiazepines: Samples containing [...] Not Detected CutOff 25 ng/mL [facility] ([place]) Comment: Interpretive Data - Phencyclidine: Samples containing [...] 03/23/2025 10:23 AM CDT Narrative [facility] ([place]) - 03/23/2025 11:05 AM CDT Drug of Abuse screening is performed by immunoassay for medical purposes only. This is not to be used for Pain Management purposes. If Detected, confirmation testing will be performed for Amphetamines, Cocaine, Fentanyl, Methadone, Opiates, Oxycodone or Phencyclidine. Dakota Cook MD LAB URINE ORDERABLES F inal Result [facility] ([place]) 1 [facility] [place] [address] * (ABNORMAL) Differential, auto (03/23/2025 9:30 AM CDT) Neutrophil abs 10.74(H) 1.50 - 6.50 K/cumm Imm gran abs 0.15(H) 0.00 - 0.10 K/cumm [facility] ([place]) Lymphocyte abs 2.33 0.80 - 3.30 K/cumm [facility] ([place]) Monocyte abs 0.88(H) 0.20 - 0.80 K/cumm [facility] ([place]) Eosinophil abs 0.20 0.00 - 0.50 K/cumm [facility] ([place]) Basophil abs 0.08 0.00 - 0.10 K/cumm [...] F inal Result [facility] ([place]) 1 [facility] [place] [address] * Urinalysis reflex to microscopic and culture [...] tendency for uric acid stone formation. Source: [facility] Current Interpretive Data was last revised on 2017 Protein, ur ql Negative Negative [facility] ([place]) Glucose, ur ql Negative Negative [facility] ([place]) Ketones, ur Negative Negative [facility] ([place]) Bilirubin, ur Negative Negative [facility] ([place]) Blood, ur Negative Negative [facility]) Urobilinogen, ur <2.0 <2.0 mg/dL [facility] Nitrite, ur Negative Negative [facility] ([place]) Leukocyte esterase, ur Negative Negative [facility]) UA reflex comment Reflex conditions for microscopic UA and culture not met. [facility] Urine, clean voided 03/23/2025 9:30 AM CDT 03/23/2025 10:23 AM CDT us Dakota Cook MD LAB MICROBIOLOGY - GEN ERAL ORDERABLES Final Result [facility] ([place]) 1 [facility] [place] [address] * (ABNORMAL) CBC with auto differential (03/23/2025 9:30 AM CDT) WBC 14.38(H) 3.80 - 9.90 K/cumm Hgb 12.2 11.9 - 15.5 g/dL [facility] ([place]) Hct 36.5 35.6 - 45.5 % [facility] ([place]) Plt 163 150 - 400 K/cumm [facility] ([place]) MPV 13.3(H) 9.1 - 12.3 [...] F inal Result [facility] ([place]) 1 [facility] [address] * RPR Blood (03/23/2025 9:30 AM CDT) RPR Nonreactive Nonreactive Comment:Testing performed by : [facility], [address] [place] [address], [id number] Blood 03/23/2025 9:30 AM CDT 03/23/2025 5:15 PM CDT Dakota Cook MD LAB MICROBIOLOGY - GEN ERAL ORDERABLES Final Result [facility] ([place]) 1 [facility] [address] from Last [address] [place] [address] [address] [facility] Advance Directives For more information, please contact: [phone] * Full Code (Latest Code Status on [...] 9:28 AM 04/21/2021 4:38 PM Care Teams Hot Dipper Relationship Specialty Start Date End Date No, Physician PCP - General 01/31/25 Conrad Merino PA [address] [place] [address] 07/03/17
== END 2025-05-24 14:48 | disposition home or self-care (01) ==
LOC: CHSED 14:22
PROVIDERS: Emergency Provider Family Medicine; PCP Family Medicine
DX: K64.4 Residual hemorrhoidal skin tags (principal); F17.210 Nicotine dependence, cigarettes, uncomplicated
CPT/HCPCS: 99283; A9270

== ENCOUNTER 2025-08-19 12:40 | Outpatient (CLI) | payer OTHER, SELFPAY ==
--- NOTE | ~2025-08-19 | XR_ITS ---
EXAMINATION: XR hand BI arthritis min 3V, 08/19/2025 12:55 SIGNALS OFFICER HISTORY: BILATERAL HAND PAIN, FAM HISTORY OF ARTHRITIS COMPARISON: No comparisons available. Findings: No acute fracture or malalignment. Minimal degenerative changes of the metacarpal carpal joint bilaterally, no erosions identified Soft tissues unremarkable. Impression: No acute fracture or malalignment. Reviewed, dictated and finalized at location P. ALS OFFICER Impression: No acute fracture or malalignment.
[2025-08-19 12:56] LABS: Hematocrit 38.7 % (35.0-49.0); Hemoglobin 12.1 g/dL (12.0-15.0); Immature Granulocyte Percent A 0.3 % (0.0-0.0); Immature Platelet Fraction Pct 9.7 % (1.0-7.0); Lymphocytes Absolute Auto 2.18 K/mm3 (1.10-4.50); Mean Corpuscular HGB Conc 31.3 g/dL (32-36); Mean Corpuscular Hemoglobin 24.8 pg (27.0-31.0); Mean Corpuscular Volume 79.3 fL (78.0-102.0); Nucleated Red Blood Cells Absolute Auto 0.00 K/mm3 (0.00-0.00); Nucleated Red Blood Cells Perc 0.0 % (0-0.0); Platelet Count Result 214 K/mm3 (150-420); Red Blood Count 4.88 M/mm3 (4.20-5.40); White Blood Count 6.9 K/mm3 (4.8-10.8)
[2025-08-19 13:20] LABS: Alanine Aminotransferase 23 U/L (6-35); Albumin Level 5.3 g/dL (3.5-5.1); Alkaline Phosphatase 47 U/L (38-126); Anion Gap 11 mmol/L (4-12); Aspartate Amino Transferase 27 U/L (14-36); Blood Urea Nitrogen 6 mg/dL (7-17); CRP < 0.5 mg/dL (<1.0); Calcium 9.7 mg/dL (8.4-10.2); Carbon Dioxide 24 mmol/L (22-30); Chloride 110 mmol/L (98-107); Estimated Glomerular Filt Rate > 60; Glucose 100 mg/dL (65-110); Osmolality Calculated 297 mOsm/kg (285-295); Potassium 3.7 mmol/L (3.4-5.0); Sodium 145 mmol/L (137-145); Total Protein 7.7 g/dL (6.3-8.2)
--- OUTSIDE RECORDS SUMMARY | 2025-08-19 13:43 | XMS_ITS | Clinical Summary ---
Author Organization [facility] Address [address] [place] [address] Phone Care Team Providers Care Mold Closer Helper Name Role Phone Provider, None Primary Care [...] PCV) 2018 06/05/2001, 03/08/2001 Pap Smear 2020 Influenza Immunization (#1) 2025 10/0 10/2013, 01/06/2014, 01/13/2010 SARS-COV-2 Immunization ( - season) 2025 Respiratory Syncytial Virus (RSV) Immunization (Adult) (1 [...] age to complete this topic Insurance MEDICAID [facility] PLAN ATTN CLAIMS [facility] [id number] Member Subscriber Plan / Payer (Ef fective for All Dates) Name:Monica Peguero Relation to Subscriber:Self Name:Monica Peguero Payer ID:[id number] Group ID:[id number] Type:Not on file Address: [address] [place] [address] [facility] [place] [address] Care Teams Mold Closer Helper Relationship Specialty Start Date End Date Provider, None [place] PCP - General 09/11/20
--- OUTSIDE RECORDS SUMMARY | 2025-08-19 13:43 | XMS_ITS | Clinical Summary ---
Author Organization [facility] Address [address] [place] [phone] Care Team Providers Care Engine Hostler Name Role Phone Conrad Merino Unavailable [phone] No, Physician Primary Care Provider [phone] Allergies No known active allergies Medications metoclopramide [...] Folliculitis 10/12/2018 Skin irritation from shaving 10/12/2018 Immunizations Immunization Administration Dates Next Due MMR 04/04/2020(Deferred: No longer n eeded) Surgical History Surgery Date Site/Laterality Comments ORIF RADIUS & ULNA FRACTURES 10/08/2016 - 10/07/2017 Lef t Medical History Medical History Date Comments Anxiety Social History Tobacco Use Types Packs/Day Years Used Date Smoking Tobacco: Every Day Cigarettes 0.5 10.9 Started: 2014 Passive Smoke Exposure: Current Smokeless Tobacco: Never Tobacco Cessation:Ready to Q uit: No; Counseling Given: Yes Alcohol Use Standard Drinks/Week Comments Not Currently 0 (1 standard drink = 0.6 oz pur e alcohol) [facility] Utilities Answer Date Recorded In the past 12 months has e [employer], gas, oil, or water [employer] threatened to shut off services in your [...] week 03/24/2025 How often do you attend [facility] or rastafarian services? Never 03/24/2025 Do you belong to any clubs o r organizations such as taoist groups, unions, fraternal or athletic groups, or [...] Date Recorded PHQ-2 Total Score 0 03/24/2025 [facility] of Occupat ional [facility] - Occupational Stress Questionnaire Answer Date Recorded [...] things needed for daily living? No 03/24/2025 [place] Depression Scale Answer Date Recorded [place] Depression Scale Total 0 03/24/2025 The thought [...] any time in the past 12 m [facility], were you homeless or living in a long-term (including now)? No 03/24/2025 Personal Safety Answer Date Recorded Have you ever been in or are you currently in a harmful physical or emotional relationship or is someone making you feel afraid or unsafe? 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[employer] Gender Identity Not on file Sexual Orientation [...] None N Livin g 9 9 SHEN GONZALEZ, Pa dias MD Complications:None Delivery Location:This Facil ity ([facility]) 2020 Term 39w 0d 1h 21m 1h 10m/0h 06m/0h 05m 3.708 kg (8 lb 2.8 oz) F Vag-Sp ont None N Livin g 9 9 NANCIE GONZALEZ Geoff rey Lowel l, MD Complications:Precipitous La bor (<3 hours) Delivery Location:This Facil [facility]y ([facility]) 2024 Term 39w 6d 0h 34m 0h 23m/0h 04m/0h 07m 3.69 kg (8 lb 2.2 oz) F Vagina l Local N Livin g 9 9 Pa Castaneda MD Complications:None Delivery Location:[facility] Facil [facility]y ([facility]) Last Filed Vital Signs Vital Sign Reading [...] 03/08/2001 HPV Vaccines Completed 06/21/2012, 12/07, 03/15/[id number] [place] [address] Advance Directives For more information, please contact: [phone] * Full Code (Latest Code Status on [...] 9:28 AM 04/21/2021 4:38 PM Care Teams Engine Hostler Relationship Specialty Start Date End Date No, Physician PCP - General 01/31/25 Conrad Merino PA [address] [place] [address] 07/03/17
[2025-08-19 13:47] LABS: Thyroid Stimulating Hormone Reflex 0.956 uIU/mL (0.465-4.68)
[2025-08-21 10:09] LABS: ANA by IFA Rfx Titer/Pattern Negative (.)
[2025-08-25 16:06] LABS: Bilirubin,Total 0.5 mg/dL (0.2-1.3)
== END 2025-08-19 12:41 | disposition home or self-care (01) ==
PROVIDERS: PCP Family Medicine; Visit Provider Family Medicine
DX: M79.641 Pain in right hand (principal); M79.642 Pain in left hand; E03.9 Hypothyroidism, unspecified
CPT/HCPCS: 36415; 73130; 80053; 84443; 85025; 85055; 86038; 86140; 86430

== ENCOUNTER 2025-09-21 10:05 | Outpatient (CLI) | payer OTHER, SELFPAY ==
[2025-09-21 10:35] LABS: Hematocrit 38.4 % (35.0-49.0); Hemoglobin 12.2 g/dL (12.0-15.0); Immature Granulocyte Percent A 0.1 % (0.0-0.0); Lymphocytes Absolute Auto 1.85 K/mm3 (1.10-4.50); Mean Corpuscular HGB Conc 31.8 g/dL (32-36); Mean Corpuscular Hemoglobin 26.0 pg (27.0-31.0); Mean Corpuscular Volume 81.9 fL (78.0-102.0); Nucleated Red Blood Cells Absolute Auto 0.00 K/mm3 (0.00-0.00); Nucleated Red Blood Cells Perc 0.0 % (0-0.0); Platelet Count Result 214 K/mm3 (150-420); Red Blood Count 4.69 M/mm3 (4.20-5.40); White Blood Count 7.2 K/mm3 (4.8-10.8)
[2025-09-21 11:12] LABS: INR 1.0; Prothrombin Time 11.0 Seconds (9.50-12.1)
[2025-09-21 11:19] LABS: Alanine Aminotransferase 16 U/L (6-35); Albumin Level 4.6 g/dL (3.5-5.1); Alkaline Phosphatase 50 U/L (38-126); Anion Gap 10 mmol/L (4-12); Aspartate Amino Transferase 22 U/L (14-36); Bilirubin,Total 0.3 mg/dL (0.2-1.3); Calcium 9.5 mg/dL (8.4-10.2); Carbon Dioxide 23 mmol/L (22-30); Chloride 112 mmol/L (98-107); Glucose 88 mg/dL (65-110); Iron 29 ug/dL (37-170); Potassium 4.0 mmol/L (3.4-5.0); Sodium 145 mmol/L (137-145); Total Protein 6.8 g/dL (6.3-8.2)
[2025-09-21 11:24] LABS: Blood Urea Nitrogen 5 mg/dL (7-17); Estimated Glomerular Filt Rate > 60; Osmolality Calculated 296 mOsm/kg (285-295)
[2025-09-21 11:30] LABS: Percent Iron Saturation 8 % (20-50)
[2025-09-21 11:50] LABS: Thyroid Stimulating Hormone Reflex 1.640 uIU/mL (0.465-4.68)
[2025-09-21 11:53] LABS: Ferritin 6.92 ng/mL (6.24-137)
[2025-09-21 12:37] LABS: Vitamin B12 307.0 pg/mL (239-931)
== END 2025-09-21 10:06 | disposition home or self-care (01) ==
PROVIDERS: PCP Family Medicine; Visit Provider Family Medicine
DX: R23.3 Spontaneous ecchymoses (principal); D64.9 Anemia, unspecified; D50.9 Iron deficiency anemia, unspecified; E03.9 Hypothyroidism, unspecified; E53.8 Deficiency of other specified B group vitamins; R10.9 Unspecified abdominal pain
CPT/HCPCS: 36415; 80053; 82607; 82728; 82746; 83540; 83550; 84443; 85025; 85610